=== PATIENT | female | born 1950 | race Caucasian/White ===

== ENCOUNTER → 2016-11-19 | Outpatient (CLI) | payer MEDICARE, OTHER ==
[2016-06-11 12:11] VITALS: BP 142/87
[~2016-11-19] MED LIST: ACET500T68 PO; ASPI-482 PO; ATOR20TA PO; CYAN500L4 PO; DICL100G7 TP; DIVA500T2 PO; DOCU-27 PO; DOCU100C5 PO; FERR160T4 PO; GLYB3TAB PO; INSU100C4 SQ; INSU100I13 SQ; INSU100I17 SQ; IOHEXOL 180 MG/ML 10 ML VIAL. ONE; LEVO25TA2 PO; LIDO700A4 TP; LOSA25TA PO; MAGN400T3 PO; META800T21 PO; METF500T4 PO; METH750T2 PO; MULT-658 PO; PARO40TA45 PO; PREG50CA PO; PREG75CA PO; RABE20TA5 PO; SITA100T PO; TOLT4CAP PO; TRAM-29 PO; TRAZ50TA15 PO; methylPREDNISolone ACETATE 40 MG/ML VIAL. ONE; methylPREDNISolone ACETATE 80 MG/ML VIAL. ONE
--- NOTE | 2016-11-20 15:00 | PAIN ---
DATE OF SERVICE: 11/19/2016 PROGRESS NOTE DIAGNOSES: 1. Lumbar radiculopathy with post-lumbar laminectomy syndrome. 2. Cervical radiculopathy with cervical degenerative disk disease and spondylosis. 3. Myofascial pain. 4. Bilateral acromioclavicular shoulder joint pain. HISTORY OF PRESENT ILLNESS: The patient is a 66-year-old female, who returns for followup, last seen 08/10/2016, the patient underwent right wrist joint injection with good results. The patient reports she has having some significant pain in her low back at this time bilateral lower extremities, more on the right than the left. The pain in her wrist is much improved. The patient reports still some pain in the shoulders as well as the right knee and right ankle, but her main pain is in the low back is 6 on a scale of 10 with resting is painful, aching, radiating to the right and left lower extremities, mostly in the right side, lateral anterior thigh, medial thigh and to the medial lower leg with walking and standing. The patient reports it has been bothering her from sleep occasionally, but not every night. It does not cause any new bowel or bladder incontinence, no new motor or sensory deficits or other complaints. PHYSICAL EXAMINATION: VITAL SIGNS: The patient's blood pressure is 152/87, pulse 105, respirations 18, temperature 98.6 degrees Fahrenheit, weight is 140 pounds. GENERAL: The patient is awake, alert, oriented, appropriate, very pleasant demeanor. HEENT: Head shows normocephalic, atraumatic. Extraocular movements are intact and symmetrical. Oral cavity shows mucous membranes moist and pink. Dentition is intact. NECK: Shows anterior throat supple without palpable lymphadenopathy noted. Swallow reflex is symmetrical. Neck shows some minor pain with extension, but not with forward flexion. Right and left lateral rotation and pain as well in the base of the neck with extension, but no radiation. CHEST: Shows normal on inspection. Breath sounds are clear to auscultation bilaterally. HEART: Shows S1 and S2 clear. No murmurs auscultated. ABDOMEN: Soft, nontender, nondistended. No palpable organomegaly. There is no rebound or guarding demonstrated. BACK: Shows spine grossly midline. Slight exaggeration of thoracic kyphosis and mild flattening of lumbar lordotic curvature, well-healed surgical scars noted in the midline lumbar distribution. Lumbar paraspinous musculature shows some moderate tenderness with palpation only in the lower lumbar distribution bilaterally, but only diffused muscle girth is normal with palpation and firm without radiation, without asymmetry, no tenderness over the spinous processes, sacrum or sacroiliac regions. The patient shows good rotation and motion of lumbar spine, both laterally as well as extension flexion without significant pain reported. Lower extremities show deep tendon reflexes at 1+ in the patellar and tendo calcaneus tendons. Motor exam is strong with dorsiflexion and extension rated approximately 4 on a scale of 5, but equal and symmetrical bilaterally. She does have some tenderness over the anterior aspect of the right ankle on the lateral aspect of the proximal metatarsals, but without any abnormalities palpated and has full range of motion. Options were discussed with the patient. The patient's old chart was reviewed, as her current medication regimen updated. Current review of systems updated today as well. We will proceed with a lumbar epidural steroid injection, first in the series with fluoroscopic guidance. Risks were again discussed including, but not limited to bleeding, infection, possibility of epidural hematoma, subsequent neurological compromise, dural puncture, headaches, spinal cord and/or nerve damage, side effects of steroid medications and poor results regarding pain control. The patient understands and wishes to proceed. The patient will return to clinic in approximately 2 weeks for followup, was counseled on return appointment, activity level, and side effects to be aware. Also, has ____ her right foot. This is most significant pain complaint secondary to back at this time. DIAGNOSIS: Lumbar radiculopathy with post-lumbar laminectomy syndrome. PROCEDURE: Lumbar epidural steroid injection, translaminar approach at the L4-L5 level using C-arm fluoroscopic guidance under sterile prep and drape using local anesthetic. Medications injected are 120 mg Depo-Medrol plus 10 mL of preservative-free normal saline and 2 mL of Isovue contrast. CONDITION AT DISCHARGE: Stable. The patient tolerated the procedure well, had no complications. FLORES FLOOD MD DR: GORDON/ariel JOB#: [id number] / [id number]
== END | disposition home or self-care (01) ==
LOC: PNCL 10:39
PROVIDERS: ATTEND Anesthesiology
DX: M54.16 Radiculopathy, lumbar region (principal); M50.10 Cervical disc disorder with radiculopathy, unspecified cervical region
CPT/HCPCS: 62323; J1030; J1040

== ENCOUNTER → 2017-01-21 | Outpatient (CLI) | payer MEDICARE, OTHER ==
[2016-06-11 12:11] VITALS: BP 142/87
[~2017-01-21] MED LIST changes: +BUPIVACAINE MPF 0.25% 10 ML VIAL. ONE; -methylPREDNISolone ACETATE 80 MG/ML VIAL. ONE
--- NOTE | 2017-01-22 05:57 | PAIN ---
DATE OF SERVICE: 01/21/2017 PROGRESS NOTE FOR PAIN CLINIC DIAGNOSES: 1. Bilateral acromioclavicular joint pain with primary osteoarthritis of the shoulder joints. 2. Cervical radiculopathy with cervical degenerative disk disease and spondylosis. 3. Lumbar radiculopathy with post-lumbar laminectomy syndrome. HISTORY OF PRESENT ILLNESS: The patient is a 66-year-old female who returns for followup status post lumbar epidural steroid injection x 1 on 11/19/2016. The patient reports she did very well with this, about 50% improvement. Her chief complaint today, however, is her right shoulder. It is aching and painful, more noticeable with activity using her right upper extremity, more in a repetitive fashion, even getting dressed, trying to abduct her shoulder away from the body. It is becoming more and more painful. The patient has had difficulty with these in the past in the left shoulder; however, it is doing very well. She reports in the right shoulder, it is most noticeable. She is right handed. She has been using her arm more and has been picking up her dog at home, which she estimates weigh about 20-30 pounds and this has been aggravating it as well on the right side. The patient reports no loss of motor function, but significant pain in the right shoulder. It is cramping, aching, and constant pain with activity. The patient reports pain anywhere from 3-6 on a scale 10. It is currently at 3 on exam today. PHYSICAL EXAMINATION: VITAL SIGNS: The patient's blood pressure is 157/93, pulse 80, respirations are 18, temperature 98.2 degrees Fahrenheit, height is 4 feet 11 inches, and weight is 144 pounds. GENERAL: The patient is awake, alert, oriented, appropriate, very pleasant demeanor. The patient is accompanied by her . HEENT: Head shows normocephalic, atraumatic. Extraocular movements are intact, symmetrical. Oral cavity shows mucous membranes moist and pink. Dentition is intact. NECK: Shows anterior throat supple without palpable lymphadenopathy noted. Swallow reflex is symmetrical. Neck shows full rotational motion of the cervical spine without difficulty or tenderness. CHEST: Shows normal on inspection. Breath sounds are clear to auscultation bilaterally. HEART: Shows S1 and S2 clear. ABDOMEN: Soft, nontender, nondistended. BACK: Shows spine grossly in the midline with slight flattening of lumbar lordotic curvature and slight exaggeration of thoracic kyphotic curvature, but no specific tenderness in the inferior aspect of the cervical paraspinous musculature, thoracic paraspinous, or lumbar distribution with very mild tenderness diffusely in the lower lumbar distribution with some minor tenderness over the left sacroiliac region and only very minimally with palpation and nontender on the right. Upper extremity showed deep tendon reflexes at 1+ in the biceps and triceps tendons. Right shoulder shows still significant pain with attempting to abduct past about 45 degrees on the right side with significant tenderness reported at the top of the shoulder. With palpation, it shows significant tenderness over the acromioclavicular joint, both anteriorly and posteriorly, very tender with the patient withdrawing the arm from the examining hand. The patient shows no tenderness on the left side with palpation. Passive range of motion is better with forward extension ____ abduction is very tender still even with passive range of motion. Options were discussed with the patient. The patient's old chart was reviewed as was her current medication regimen and updated. Current review of systems updated today as well and we will proceed with a right acromioclavicular joint injection with fluoroscopic guidance. Risks were again discussed including, but not limited to bleeding, infection, possibility of intravascular injection sequelae, spread of local anesthetic and numbness, side effects of steroid medication and exposure to fluoroscopy and poor results regarding pain control. The patient understands and wishes to proceed. The patient will return to clinic in approximately 2 weeks for followup. She was counseled on return appointment, activity level and side effects to be aware of. DIAGNOSIS: Right shoulder joint pain with primary osteoarthritis, right shoulder joint. PROCEDURE: Right acromioclavicular joint injection with fluoroscopic guidance under sterile prep and drape using local anesthetic. MEDICATIONS INJECTED: 40 mg of Depo-Medrol total and total of 2 mL of 0.25% bupivacaine after negative aspiration at the injection site. CONDITION AT DISCHARGE: Stable. The patient tolerated the procedure well and had no complications. FLORES FLOOD MD DR: GORDON/ariel JOB#: [id number] / [id number]
== END | disposition home or self-care (01) ==
LOC: PNCL 11:47
PROVIDERS: ATTEND Anesthesiology
DX: M19.011 Primary osteoarthritis, right shoulder (principal); M50.10 Cervical disc disorder with radiculopathy, unspecified cervical region; M96.1 Postlaminectomy syndrome, not elsewhere classified; M54.16 Radiculopathy, lumbar region
CPT/HCPCS: 20610; 77002; J1030; J3490; 20600

== ENCOUNTER → 2017-03-31 | Outpatient (CLI) | payer MEDICARE, OTHER ==
[2016-06-11 12:11] VITALS: BP 142/87
[~2017-03-31] MED LIST changes: +DICL100G18 TP; -DICL100G7 TP; +DOCU-109 PO; -DOCU-27 PO; +DOCU100C28 PO; -DOCU100C5 PO; -IOHEXOL 180 MG/ML 10 ML VIAL. ONE; -LEVO25TA2 PO; +LEVO25TA55 PO; +META-21 PO; -META800T21 PO; -PARO40TA45 PO; +PARO40TA61 PO; +RABE20TA18 PO; -RABE20TA5 PO; -TRAM-29 PO; +TRAM-48 PO
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
== END | disposition home or self-care (01) ==
LOC: PNCL 10:05
PROVIDERS: ATTEND Anesthesiology
DX: M19.011 Primary osteoarthritis, right shoulder (principal); M50.10 Cervical disc disorder with radiculopathy, unspecified cervical region; M54.16 Radiculopathy, lumbar region; M47.22 Other spondylosis with radiculopathy, cervical region; M96.1 Postlaminectomy syndrome, not elsewhere classified; Z91.041 Radiographic dye allergy status; Z91.040 Latex allergy status
CPT/HCPCS: 20605; 77002; J1030; J3490; 20600

== ENCOUNTER → 2017-04-22 | Outpatient (CLI) | payer MEDICARE, OTHER ==
[2016-06-11 12:11] VITALS: BP 142/87
== END | disposition home or self-care (01) ==
LOC: PNCL 11:17
PROVIDERS: ATTEND Anesthesiology
DX: M19.011 Primary osteoarthritis, right shoulder (principal); Z91.040 Latex allergy status; Z91.048 Other nonmedicinal substance allergy status; Z91.041 Radiographic dye allergy status
CPT/HCPCS: 20605; 77002; J1030; J3490

== ENCOUNTER → 2017-07-21 | Outpatient (CLI) | payer MEDICARE, OTHER ==
[2016-06-11 12:11] VITALS: BP 142/87
--- NOTE | 2017-07-21 16:24 | PAIN ---
DATE OF SERVICE: 07/21/2017 DIAGNOSES: 1. Cervical radiculopathy with cervical degenerative disk disease and cervical spondylosis. 2. Lumbar radiculopathy with post-lumbar laminectomy syndrome. 3. Myofascial pain. 4. Bilateral shoulder joint pain. 5. Right wrist joint pain. HISTORY OF PRESENT ILLNESS: The patient is a 67-year-old female who returns for followup status post bilateral acromioclavicular joint injections, 04/22/2017. The patient reports she did very well with the injections with only some pain beginning to return now on the left shoulder only. The patient is about 50% improved. The right side is almost completely pain free, left side, however, is fairly significantly tender with palpation and with rotational motion of the arm, especially raising her arm up over her head or reaching forward, she notices the pain in the top of the shoulder and the posterior aspect of the top shoulder on the left side only. Right side shows good range of motion without difficulty. The patient reports the pain in the left side is becoming more constant. It is cramping, tight, aching, rates as 7 on a scale of 10 at its worse, 5 on average, 3 at least and 3 today. The patient reports it does not awaken her from sleep; however, she has been doing well with sleeping. Only bothers her more with weightbearing on the left arm, reaching forward or pulling something forward and driving car, reaching with her left arm to steering wheel. PHYSICAL EXAMINATION: VITAL SIGNS: The patient's blood pressure 159/39, pulse 54, respirations are 16, temperature 96.4 degrees Fahrenheit, weight is 144 pounds. GENERAL: The patient is awake, alert, oriented, appropriate, very pleasant demeanor. HEENT: Shows normocephalic, atraumatic. Extraocular movements are intact, symmetrical. Oral cavity, mucous membranes are moist and pink. Dentition is intact. NECK: Shows anterior throat supple without palpable lymphadenopathy noted. Swallow reflex is symmetrical. CHEST: Shows normal on inspection. Breath sounds are clear to auscultation bilaterally. HEART: Shows S1 and S2 clear. ABDOMEN: Soft, nontender, nondistended. No palpable organomegaly noted. No rebound or guarding demonstrated. BACK: Shows spine grossly in midline with some slight exaggeration of thoracic kyphosis and some mild flattening of lumbar lordotic curvature. Well-healed surgical scars noted in the lumbar distribution. The patient's upper extremities show deep tendon reflexes 2+ in the biceps and triceps tendons. Motor exam is strong with pharmacy benefits coordinator strength rated at 5/5 on the left and 4/5 on the right. The patient has a splint on her right middle finger after recent trigger finger release surgery. The patient's shoulder shows some significant tenderness with palpation over the anterior and posterior acromioclavicular joint on the left only. Right side is only very minimally tender with deep palpation. The patient has good range of motion, however, with the left arm, but tender with raising past 90 degrees abduction as well as full forward extension with any weightbearing or resistance. Peripheral pulses are 2+ radial distribution bilaterally. Options were discussed with the patient and the patient's old chart was reviewed as her current medication regimen updated. Current review of systems updated today as well. We will proceed with a left acromioclavicular joint injection. Risks were discussed including but not limited to bleeding, infection, possibility of intravascular injection sequelae, spread of local anesthetic and numbness, side effects of steroid medication and poor results regarding pain control. The patient understands and wishes to proceed. The patient will return to clinic in approximately 4 weeks for followup, was counseled on return appointment, activity level and side effects to be aware of. DIAGNOSES: Left shoulder joint acromioclavicular pain with primary osteoarthritis, left shoulder joint. PROCEDURE: Left acromioclavicular joint injection using local anesthetic under sterile prep and drape, with medications injected a total of 40 mg of Depo-Medrol, plus 2 mL of 0.25% bupivacaine after negative aspiration. CONDITION AT DISCHARGE: Stable. The patient tolerated procedure well, had no complications. FLORES FLOOD MD DR: GORDON/ariel JOB#: [id number] / [id number]
== END | disposition home or self-care (01) ==
LOC: PNCL 13:35
PROVIDERS: ATTEND Anesthesiology
DX: M19.012 Primary osteoarthritis, left shoulder (principal); M50.10 Cervical disc disorder with radiculopathy, unspecified cervical region; M47.22 Other spondylosis with radiculopathy, cervical region; Z91.041 Radiographic dye allergy status; Z91.040 Latex allergy status; Z91.048 Other nonmedicinal substance allergy status
CPT/HCPCS: 20605; J1030; J3490

== ENCOUNTER → 2017-09-16 | Outpatient (CLI) | payer MEDICARE, OTHER ==
[2016-06-11 12:11] VITALS: BP 142/87
[~2017-09-16] MED LIST changes: +IOHEXOL 180 MG/ML 10 ML VIAL. ONE; -methylPREDNISolone ACETATE 40 MG/ML VIAL. ONE; +methylPREDNISolone ACETATE 80 MG/ML VIAL. ONE
--- NOTE | 2017-09-16 12:25 | PAIN ---
DATE OF SERVICE: 09/16/2017 PROGRESS NOTE DIAGNOSES: 1. Cervical radiculopathy with cervical degenerative disease, cervical spondylosis. 2. Lumbar radiculopathy with post-lumbar laminectomy syndrome. 3. Myofascial pain. 4. Bilateral shoulder joint pain. 5. Right wrist joint pain. HISTORY OF PRESENT ILLNESS: The patient is a 67-year-old female who returns for followup status post bilateral and most recently left acromioclavicular shoulder joint injection, last seen 07/21/2017. The patient did very well with this with near 100% improvement, but the pain has returned after she had a fall about a month ago on her left shoulder and arm. Still got pain in the base of the neck as well as bilateral shoulders, left much worse than right. Now reports it is aching, sharp, dull pain, constant, becoming more unbearable, more severe with activity with left upper extremity. The patient is left-handed. Any repetitive motions that reached above her shoulder with the left arm such as putting dishes into a cabinet or taking them out or any weightbearing, especially at her side with carrying items, it is painful in both shoulders, much worse on the left than the right. The patient reports pain is 10 on a scale 10 at its worst, 8 on average, 6 at its least and it is an 8 today. The patient reports no new motor or sensory deficits, but significant pain, much worse in the left shoulder is noted. She reports she has tripped over her dog or her dog's kennel on 2 occasions reexacerbating the left shoulder pain as well. PHYSICAL EXAMINATION: VITAL SIGNS: Today, the patient's blood pressure is 160/101, pulse 99, respirations 16, temperature 97.7 degrees Fahrenheit, weight is 144 pounds. GENERAL: The patient is awake, alert, oriented, appropriate, very pleasant demeanor. The patient accompanied by her . HEENT: Head shows normocephalic, atraumatic. Extraocular movements are intact, symmetrical. Oral cavity: Mucous membranes moist and pink. Dentition is intact. NECK: Shows anterior throat supple without palpable lymphadenopathy noted. Swallow reflex symmetrical. CHEST: Shows normal with inspection. Breath sounds clear to auscultation bilaterally. HEART: Shows S1, S2 clear. No murmurs auscultated. ABDOMEN: Soft, nontender, nondistended. No palpable organomegaly is noted. No rebound or guarding demonstrated. BACK: Shows spine grossly in the midline. Slight exaggeration of thoracic kyphosis, mild flattening of lumbar lordotic curvature. The patient's upper extremities show deep tendon reflexes at 2+ in the biceps and triceps tendons. Motor exam is 5/5 with back up machine operator strength on the right and 4/5 on the left. The patient's shoulder shows significant pain with palpation over the anterior aspect of the acromioclavicular joint on the left and also posterior aspect and the superior aspect of the distal clavicle with very tender and very severe pain. Right side is moderately to severe pain with palpation in the same regions. The patient shows difficulty with abduction of the shoulders, especially past 45 degrees on the left greater than the right, even with passive motion. Options were discussed with the patient. The patient's old chart was reviewed. Her current medication regimen updated. Current review of systems updated today as well. We will proceed with bilateral left and right acromioclavicular joint injections with fluoroscopic guidance. Risks were again discussed including, but not limited to bleeding, infection, possibility of intravascular injection sequelae, spread of local anesthetic and numbness, side effects of steroid medication, exposure to fluoroscopy and poor results regarding pain control. The patient understands and wished to proceed. The patient will return to clinic in approximately 2 weeks for followup. She was counseled on return appointment, activity level and side effects to be aware of. DIAGNOSIS: Primary osteoarthritis of the bilateral shoulder joints, acromioclavicular joints specifically. Procedure is bilateral acromioclavicular joint injection with C-arm fluoroscopic guidance under sterile prep and drape using local anesthetic. Medication injected is total of 80 mg Depo-Medrol, 40 mg per side and total of 4 mL 0.25% bupivacaine, 2 mL per side after negative aspiration, Isovue 2 mL total for contrast. CONDITION AT DISCHARGE: Stable. The patient tolerated procedure well, had no complications. FLORES FLOOD MD DR: GORDON/ariel JOB#: [id number] / [id number]
== END | disposition home or self-care (01) ==
LOC: PNCL 10:39
PROVIDERS: ATTEND Anesthesiology
DX: M19.012 Primary osteoarthritis, left shoulder (principal); M19.011 Primary osteoarthritis, right shoulder; M50.10 Cervical disc disorder with radiculopathy, unspecified cervical region; M47.22 Other spondylosis with radiculopathy, cervical region; Z91.041 Radiographic dye allergy status; Z91.040 Latex allergy status; Z91.048 Other nonmedicinal substance allergy status
CPT/HCPCS: 20605; J1040; J3490; 20600

== ENCOUNTER → 2017-12-08 | Outpatient (CLI) | payer MEDICARE, OTHER ==
[~2017-12-08] MED LIST changes: -ACET500T68 PO; -ASPI-482 PO; -ATOR20TA PO; -BUPIVACAINE MPF 0.25% 10 ML VIAL. ONE; -CYAN500L4 PO; -DICL100G18 TP; -DIVA500T2 PO; -DOCU-109 PO; -DOCU100C28 PO; -FERR160T4 PO; -GLYB3TAB PO; -INSU100C4 SQ; -INSU100I13 SQ; -INSU100I17 SQ; +IOHEXOL 180 MG/ML 10 ML VIAL.; -IOHEXOL 180 MG/ML 10 ML VIAL. ONE; -LEVO25TA55 PO; -LIDO700A4 TP; -LOSA25TA PO; -MAGN400T3 PO; -META-21 PO; -METF500T4 PO; -METH750T2 PO; -MULT-658 PO; -PARO40TA61 PO; -PREG50CA PO; -PREG75CA PO; -RABE20TA18 PO; -SITA100T PO; -TOLT4CAP PO; -TRAM-48 PO; -TRAZ50TA15 PO; +methylPREDNISolone ACETATE 40 MG/ML VIAL.; +methylPREDNISolone ACETATE 80 MG/ML VIAL.; -methylPREDNISolone ACETATE 80 MG/ML VIAL. ONE
== END ==
LOC: PNCL 11:01
DX: M50.10 Cervical disc disorder with radiculopathy, unspecified cervical region (principal); M96.1 Postlaminectomy syndrome, not elsewhere classified; M47.892 Other spondylosis, cervical region; M19.90 Unspecified osteoarthritis, unspecified site; Z80.41 Family history of malignant neoplasm of ovary; Z84.1 Family history of disorders of kidney and ureter
CPT/HCPCS: 62321; J1030; J1040; Q9965

== ENCOUNTER → 2017-12-22 | Outpatient (CLI) | payer MEDICARE, OTHER | LOC: PNCL 10:39 | DX: M47.22 Other spondylosis with radiculopathy, cervical region (principal); M50.10 Cervical disc disorder with radiculopathy, unspecified cervical region; M96.1 Postlaminectomy syndrome, not elsewhere classified; Y84.8 Other medical procedures as the cause of abnormal reaction of the patient, or of later complication, without mention of misadventure at the time of the procedure; Y92.89 Other specified places as the place of occurrence of the external cause; M54.16 Radiculopathy, lumbar region | CPT/HCPCS: G0463 ==

== ENCOUNTER → 2018-03-31 | Outpatient (CLI) | payer MEDICARE, OTHER ==
[~2018-03-31] MED LIST changes: +LIDOCAINE 1% PF 2 ML VIAL.
== END ==
LOC: PNCL 11:38
DX: M50.10 Cervical disc disorder with radiculopathy, unspecified cervical region (principal); M54.16 Radiculopathy, lumbar region; M96.1 Postlaminectomy syndrome, not elsewhere classified; M79.1 Myalgia; M25.512 Pain in left shoulder; M25.511 Pain in right shoulder
CPT/HCPCS: 62321; J1030; J1040; Q9965

== ENCOUNTER → 2018-04-21 | Outpatient (CLI) | payer MEDICARE, OTHER ==
[~2018-04-21] MED LIST changes: +BUPIVACAINE MPF 0.25% 10 ML VIAL.; -methylPREDNISolone ACETATE 40 MG/ML VIAL.
== END | disposition home or self-care (01) ==
LOC: PNCL 12:48
DX: M19.011 Primary osteoarthritis, right shoulder (principal); M19.012 Primary osteoarthritis, left shoulder; M79.1 Myalgia; M96.1 Postlaminectomy syndrome, not elsewhere classified; M50.10 Cervical disc disorder with radiculopathy, unspecified cervical region; Z91.041 Radiographic dye allergy status; Z91.040 Latex allergy status; Z91.048 Other nonmedicinal substance allergy status
CPT/HCPCS: 20605; 77002; J1040; J3490; Q9965

== ENCOUNTER → 2018-07-28 | Outpatient (CLI) | payer MEDICARE, OTHER ==
[2016-06-11 12:11] VITALS: BP 142/87
[~2018-07-28] MED LIST changes: +ACET500T68 PO; +ASPI-482 PO; +ATOR20TA PO; -BUPIVACAINE MPF 0.25% 10 ML VIAL.; +CYAN500L4 PO; +DICL100G18 TP; +DIVA500T2 PO; +DOCU-109 PO; +DOCU100C28 PO; +FERR160T4 PO; +GLYB3TAB PO; +INSU100C4 SQ; +INSU100I13 SQ; +INSU100I17 SQ; -IOHEXOL 180 MG/ML 10 ML VIAL.; +LEVO25TA55 PO; +LIDO700A4 TP; -LIDOCAINE 1% PF 2 ML VIAL.; +LOSA25TA PO; +MAGN400T3 PO; +META-21 PO; +METF500T16 PO; +METH750T2 PO; +MULT-658 PO; +PARO40TA61 PO; +PREG50CA PO; +PREG75CA PO; +RABE20TA18 PO; +SITA100T PO; +TOLT4CAP PO; +TRAM-48 PO; +TRAZ-85 PO; -methylPREDNISolone ACETATE 80 MG/ML VIAL.
[2018-07-28] MEDS: GADOBUTROL 7.5 MMOL/7.5 ML VIAL IV ONE (13:57)
--- NOTE | 2018-07-28 14:49 | RAD ---
MRI Cervical Spine with and without contrast History: Neck pain and stiffness, bilateral arm radiculopathy, previous fusion Technique: Multiplanar, multi sequential pre and postcontrast MR imaging was performed of the cervical spine. Contrast: 6 cc Gadavist Comparison: April 16, 2016 Findings: There has been anterior cervical fusion at C5-C6 in the interval. Exam does not accurately evaluate integrity of hardware. There is increased T2 and STIR signal of the visualized jb in interval. Cervical cord caliber is within normal limits without convincing focal signal abnormality or enhancement. Cervical vertebral body stature is maintained. There is straightening of the cervical spine, very mild reversal of the lordotic curvature centered upon C3-4. There is mild grade 1 anterior spondylolisthesis at C2-3 and C3-4. There is again [id number] degenerative disc disease greater anteriorly at C6-7 and mild degenerative disc disease C4-5 greater in the interval. There is no significant marrow edema. C2-C3: There is fairly severe left facet degenerative change, to lesser degree on the right. Spinal canal and right neural foramen are adequate, mild to moderate posterior narrowing of the left neural foramen. C3-C4: There is severe left facet degenerative change, to lesser degree on the right. There is mild buckling of the ligamentum flavum. Central canal is minimally narrowed to 9 to 10 mm. Right neural foramen is adequate. There is mild left uncovertebral degenerative change. There is severe narrowing of the left neural foramen. C4-C5: There is new extrusion eccentric to the left lateral recess mostly contained about the intervertebral disc space level although slight extent below. Extrusion measures about about 10 mm transverse by 10 mm CC by 4 mm AP. There is indentation upon the ventral thecal sac greater in the left lateral recess. There is impingement upon the left ventral cord. Central canal is narrowed to about 6 mm with a greater degree of left lateral recess stenosis. There is bilateral facet degenerative change. Right neural foramen is adequate, likely at least mild narrowing of the left neural foramen. C5-C6: There are minimal posterior osteophytes in the lateral recesses. Central canal is adequate about 11 mm. There is uncovertebral degenerative change. There is moderate narrowing of the left neural foramen by osteophytes, right neural foramen not significantly narrowed. C6-C7: Spinal canal and the neural foramina are adequate. There is mild uncovertebral degenerative change. C7-T1: Spinal canal and neural foramina are adequate. There is minimal uncovertebral degenerative change. Impression: 1. Comparing with the 2016 exam, there is new extrusion at C4-5 more eccentric to left lateral recess with impingement of the left ventral cord, central canal stenosis about 6 mm at this level with a greater degree of left lateral recess stenosis. There has been anterior cervical fusion at C5-C6 in the interval. There is mild spinal stenosis at C3-4. There is severe narrowing of the left C3-4 neural foramen, lesser degree of narrowing on the left at C5-C6, C2-3, C4-5. 2. There is [id number] degenerative disc disease C6-7 and to lesser degree at C4-5, progressed at C4-5 in the interval. 3. Compared with the previous exam, there is increased T2 and STIR signal of the visualized jb, nonspecific findings most commonly due to to chronic microvascular ischemic disease in a patient this age. Electronically signed by: Rusty Philip MD (07/28/2018 2:46 PM) [id number]
== END | disposition home or self-care (01) ==
LOC: MRI 13:59
PROVIDERS: ATTEND Neurological Surgery
DX: M50.321 Other cervical disc degeneration at C4-C5 level (principal); M48.02 Spinal stenosis, cervical region; M50.221 Other cervical disc displacement at C4-C5 level; M43.12 Spondylolisthesis, cervical region
CPT/HCPCS: 72156; A9585

== ENCOUNTER → 2018-08-30 | Outpatient (CLI) | payer MEDICARE, OTHER ==
[2016-06-11 12:11] VITALS: BP 142/87
[~2018-08-30] MED LIST changes: +CRESTOR5 MG PO; +MELO15TA6 PO; +VITAMIN D 3
--- NOTE | 2018-08-30 13:48 | EKG ---
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
[2018-08-30 20:13] LABS: HEMOGLOBIN A1C 9.2 % (4.8-5.6)
== END | disposition home or self-care (01) ==
LOC: SURGPAT 12:38
PROVIDERS: ATTEND Neurological Surgery
DX: Z01.818 Encounter for other preprocedural examination (principal); M50.121 Cervical disc disorder at C4-C5 level with radiculopathy; M48.02 Spinal stenosis, cervical region; R94.31 Abnormal electrocardiogram [ECG] [EKG]
CPT/HCPCS: 36415; 83036; 87641; 93005

== ENCOUNTER → 2018-10-28 | Outpatient (CLI) | payer MEDICARE, OTHER ==
[2018-09-22 15:03] VITALS: BP 144/85
[~2018-10-28] MED LIST changes: +HYDR-2761 PO; +IOHEXOL 180 MG/ML 10 ML VIAL. ONE; +methylPREDNISolone ACETATE 40 MG/ML VIAL. ONE; +methylPREDNISolone ACETATE 80 MG/ML VIAL. ONE
--- NOTE | 2018-10-28 10:50 | PAIN ---
DATE OF SERVICE: 10/28/2018 DIAGNOSES: 1. Cervical radiculopathy with cervical degenerative disk disease and post-cervical laminectomy syndrome. 2. Lumbar radiculopathy with lumbar post-laminectomy syndrome. 3. Bilateral shoulder joint pain. HISTORY OF PRESENT ILLNESS: The patient is a 68-year-old female who returns for followup status post cervical epidural steroid injections and recent anterior cervical diskectomy with fusion. The patient reports that she is doing quite well after her cervical surgery, but her chief complaint is low back and right lower extremity pain. The patient reports significant pain in low back radiating to posterior gluteus, lateral thigh, lateral anterior thigh, medial thigh and medial lower leg on the right side greater than the left and across the low back, is aching, dull, stabbing, sometimes shooting, radiating pain into the right lower extremity. The patient reports it is 7 on a scale of 10 at its worst, 6 on average, 6 at its least and is a 6 today. The patient reports no new motor or sensory deficits, but worse with walking, standing, changing positions, better with lying down or sitting, does not awaken her from sleep generally, but on some nights it does. The patient reports no new motor or sensory deficits, no new bowel or bladder incontinence or other complaints. PHYSICAL EXAMINATION: VITAL SIGNS: The patient's blood pressure is 114/105, pulse 116, respirations are 18, temperature 97.4 degrees Fahrenheit, height is 4 feet 11 inches, weighs 141 pounds. GENERAL: The patient is awake, alert, oriented, appropriate, very pleasant demeanor. HEENT: Head shows normocephalic, atraumatic. Extraocular movements intact and symmetrical. Oral cavity: Mucous membranes moist and pink. Dentition is intact. NECK: Shows anterior throat supple without palpable lymphadenopathy noted. Swallow reflex symmetrical. CHEST: Shows normal with inspection. Breath sounds clear to auscultation bilaterally. HEART: Shows S1, S2 clear. No murmurs auscultated. ABDOMEN: Soft, nontender, nondistended. No palpable organomegaly is noted. No rebound or guarding demonstrated. BACK: Shows spine grossly in the midline. Slight increase in thoracic kyphosis, normal appearing lumbar lordotic curvature with well-healed surgical scar noted. EXTREMITIES: The patient's lower extremities show deep tendon reflexes at 1+ in the patellar and tendo calcaneus tendons are equal. Motor exam is strong with dorsiflexion, extension, quadriceps and hamstring flexion, rated 4/5 equal and symmetrical bilaterally. Peripheral pulses are 1+ posterior tibial. No peripheral edema is noted bilaterally. Options were discussed with the patient. The patient's old chart was reviewed, as her current medication regimen updated. Current review of systems updated today as well. We will proceed with a lumbar epidural steroid injection today with the first in this series with fluoroscopic guidance. Risks were again discussed including, but not limited to bleeding, infection, possibility of epidural hematoma and subsequent neurological compromise, dural puncture, headaches, spinal cord and/or nerve damage, side effects of steroid medication and poor results regarding pain control. The patient understands and wished to proceed. The patient will return to clinic in approximately 2 weeks for followup, was counseled as to return appointment, activity level and side effects to be aware of. DIAGNOSES: Lumbar radiculopathy with post-lumbar laminectomy syndrome. PROCEDURE: Lumbar epidural steroid injection, translaminar approach at L4-L5 level using C-arm fluoroscopic guidance under sterile prep and drape using local anesthetic. MEDICATION INJECTED: A total of 120 mg Depo-Medrol, plus 10 mL of preservative-free normal saline and 2 mL of Isovue for contrast. CONDITION AT DISCHARGE: Stable. The patient tolerated the procedure well, had no complications. FLORES FLOOD MD DR: GORDON/ariel JOB#: [id number] / [id number]
== END | disposition home or self-care (01) ==
LOC: PNCL 08:41
PROVIDERS: ATTEND Anesthesiology
DX: M96.1 Postlaminectomy syndrome, not elsewhere classified (principal); M50.10 Cervical disc disorder with radiculopathy, unspecified cervical region; M25.512 Pain in left shoulder; M25.511 Pain in right shoulder; Z91.041 Radiographic dye allergy status; Z91.040 Latex allergy status; Z91.048 Other nonmedicinal substance allergy status
CPT/HCPCS: 62323; J1030; J1040; Q9965

== ENCOUNTER → 2019-04-05 | Outpatient (CLI) | payer MEDICARE, OTHER ==
[2018-09-22 15:03] VITALS: BP 144/85
[~2019-04-05] MED LIST changes: +BUPIVACAINE MPF 0.25% 10 ML VIAL. ONE; +TRAZ-118 PO; -TRAZ-85 PO; -methylPREDNISolone ACETATE 40 MG/ML VIAL. ONE
--- NOTE | 2019-04-05 22:29 | PAIN ---
DATE OF SERVICE: 04/05/2019 PROGRESS NOTE FOR PAIN CLINIC DIAGNOSES: 1. Cervical radiculopathy with cervical degenerative disk disease and post-cervical laminectomy syndrome. 2. Lumbar radiculopathy with post-lumbar laminectomy syndrome. 3. Myofascial pain. 4. Bilateral shoulder joint pain. 5. Right wrist joint pain. HISTORY OF PRESENT ILLNESS: The patient is a 68-year-old female who returns for followup status post lumbar epidural steroid injection x 1, 10/28/2018. The patient did very well with this with about a 75% improvement. Her chief complaint today is her left shoulder joint aching and painful. She has had this in the past as well as some pain in the neck and upper shoulder. The patient did have cervical surgery in September of last year by her report, is doing quite well with that, but some minor pain in the base of the neck. The patient reports the pain in her left shoulder now is worse with using her left arm for activity, raising objects, weightbearing with left arm, reaching forward, reaching upward, hence having difficulty with it, disturbing her from sleep occasionally but not every night if she lays on her left side. The patient reports her pain was 9 on a scale of 10 at its worst in the past week, 7 on average, 6 at its least and is 6 today. The patient reports it burning, cramping and tight feeling in the left shoulder, severe at times and sometimes constant with activity, especially with any weightbearing or lifting items, repetitive movements of the left arm. The patient reports no new motor or sensory deficits, no new changes. PHYSICAL EXAMINATION: VITAL SIGNS: The patient's blood pressure is 151/83, pulse 119, respirations 18, temperature 98.2 degrees Fahrenheit, height is 4 feet 11 inches, weighs 136 pounds. GENERAL: The patient is awake, alert, oriented, appropriate, very pleasant demeanor. HEENT: Shows normocephalic, atraumatic. Extraocular movements intact and symmetrical. Oral cavity: Mucous membranes moist and pink. Dentition is intact. NECK: Shows anterior throat supple without palpable lymphadenopathy noted. Swallow reflex symmetrical. CHEST: Shows normal with inspection. Breath sounds clear to auscultation bilaterally. HEART: Shows S1, S2 clear. No murmurs auscultated. ABDOMEN: Soft, nontender, nondistended. No palpable organomegaly is noted. No rebound or guarding demonstrated. BACK: Shows spine grossly in the midline. Slightly exaggerated thoracic kyphosis and normal lumbar lordotic curvature. Lumbar paraspinous muscle shows symmetrical on inspection, on palpation shows some moderate tenderness diffusely without any radiation. Cervical paraspinous muscle shows symmetrical. Good rotational motion of cervical spine, both laterally as well as extension and flexion without significant increase in pain. EXTREMITIES: The patient's upper extremities show deep tendon reflexes 2+ in biceps and triceps tendons. 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 The patient's left acromioclavicular area shows very significant tenderness with palpation over the anterior superior joint as well as the posterior aspect of the AC joint on the left side. It is worse with abduction of the shoulders and resistance and also bicep and tricep flexion causes increased the pain as well. Right side is nontender. Peripheral pulses are 2+ radial distribution. No peripheral edema is noted. Options were discussed. The patient's old chart was reviewed as was her current medication regimen updated. Current review of systems updated today as well. We will proceed with a left acromioclavicular joint injection today with fluoroscopic guidance. Risks were again discussed including, but not limited to bleeding, infection, possibility of intravascular injection sequelae, spread of local anesthetic and numbness, side effects of steroid medication, exposure to fluoroscopy and poor results regarding pain control. The patient understands and wished to proceed. The patient will return to clinic in approximately 2 weeks for followup, was counseled as to return appointment, activity level and side effects to be aware of. DIAGNOSIS: Left shoulder joint pain with osteoarthritis of left shoulder joint. PROCEDURE: Left acromioclavicular joint injection using C-arm fluoroscopic guidance under sterile prep and drape using local anesthetic. MEDICATION INJECTED: A total of 40 mg Depo-Medrol plus total of 2 mL of 0.25% bupivacaine and 0.5 mL of contrast. CONDITION AT DISCHARGE: Stable. The patient tolerated the procedure well, had no complications. FLORES FLOOD MD DR: GORDON/ariel JOB#: [id number] / [id number]
== END ==
LOC: PNCL 11:15
PROVIDERS: ATTEND Anesthesiology
DX: M13.812 Other specified arthritis, left shoulder (principal); M25.512 Pain in left shoulder
CPT/HCPCS: 20605; 77002; J1040; J3490; Q9965

== ENCOUNTER → 2019-06-08 | Outpatient (CLI) | payer MEDICARE, OTHER ==
[2018-09-22 15:03] VITALS: BP 144/85
[~2019-06-08] MED LIST changes: -BUPIVACAINE MPF 0.25% 10 ML VIAL. ONE; +methylPREDNISolone ACETATE 40 MG/ML VIAL. ONE
--- NOTE | 2019-06-09 14:52 | PAIN ---
DATE OF SERVICE: 06/08/2019 PROGRESS NOTE FOR PAIN CLINIC DIAGNOSIS: Lumbar radiculopathy with lumbar post laminectomy syndrome. HISTORY OF PRESENT ILLNESS: The patient is a 69-year-old female, who returns for followup status post previous acromioclavicular joint injection on the left with about 70% improvement. The patient reports her chief complaint today is her low back and right hip pain. The patient reports she did very well after an epidural injection in October of this year with about 70% improvement, but the pain is returning now. She did fall with an injury with her right hip but has an x-ray without any dislocation or fractures. There is still some significant pain radiating to posterior gluteus, posterolateral thigh, lateral anterior thigh, medial thigh, medial lower leg with walking, standing, changing positions, better with sitting or lying down, but it is awakening her from sleep sometimes every 4-6 hours but not every night. The patient reports no new motor or sensory deficits. The patient reports her pain is 7 on a scale of 10 on average, 9 at its worst, 4 at its least, and is a 4 today. The patient reports no new motor or sensory deficits, no new bowel or bladder incontinence. She describes the pain as aching and dull, shooting and sharp, radiating and constant in the low back at times. PHYSICAL EXAMINATION: VITAL SIGNS: The patient's blood pressure 147/72, pulse 90, respirations 18, temperature 98.2 degree Fahrenheit, height 4 feet 11 inches, and weighs 135 pounds. GENERAL: The patient is awake, alert, oriented, appropriate, and very pleasant demeanor. HEENT: Head shows normocephalic, atraumatic. Extraocular movements are intact and symmetrical. Oral cavity: Mucous membranes are moist and pink. Dentition is intact. NECK: Shows anterior throat supple without palpable lymphadenopathy noted. Swallow reflex is symmetrical. CHEST: Shows normal on inspection. Breath sounds are clear to auscultation bilaterally. HEART: Shows S1, S2 clear. No murmurs are auscultated. ABDOMEN: Soft, nontender, and nondistended. No palpable organomegaly is noted. No rebound or guarding demonstrated. BACK: Shows spine grossly in the midline; normal appearing thoracic kyphosis; slight exaggeration of thoracic kyphosis actually and some minor flattening of lumbar lordotic curvature; well-healed surgical scar noted. Lumbar paraspinous muscle shows symmetrical on inspection. On palpation, there is some moderate tenderness diffusely bilaterally but only diffusely without radiation. The patient has good rotational motion of lumbar spine with both lateral extension and flexion without significant difficulty. EXTREMITIES: Lower extremities show deep tendon reflexes 1+ in the patellar and tendo-calcaneus tendons. Motor exam is approximately 4 on a scale of 5, but equal and symmetrical bilaterally with dorsiflexion, extension; quadriceps and hamstring flexion in both lower extremities. Peripheral pulses are 1+ posterior tibia. No peripheral edema is noted. IMPRESSION AND PLAN: Options were discussed with the patient. The patient's old chart was reviewed as her current medication regimen updated and current review of systems updated today as well. We will proceed with a first in this series of lumbar epidural steroid injection today with fluoroscopic guidance. Risks were again discussed including but not limited to bleeding, infection, possibility of epidural hematoma, subsequent neurological compromise, dural puncture, headaches, spinal cord and/or nerve damage, side effects of steroid medication, and poor results regarding pain control. The patient understands and wished to proceed. The patient will return to clinic in approximately 2 weeks for followup. She was counseled as to return appointment, activity level, and side effects to be aware of. DIAGNOSIS: Lumbar radiculopathy with lumbar post laminectomy syndrome. PROCEDURE: Lumbar epidural steroid injection, translaminar approach, L4-L5 level, using C-arm fluoroscopic guidance under sterile prep and drape using local anesthetic. MEDICATION INJECTED: The patient received a total of 120 mg Depo-Medrol plus 10 mL of preservative-free normal saline and 2 mL of contrast. CONDITION AT DISCHARGE: Stable. The patient tolerated the procedure well, had no complications. FLORES FLOOD MD DR: GORDON/ariel JOB#: [id number] / [id number]
== END ==
LOC: PNCL 11:14
PROVIDERS: ATTEND Anesthesiology
DX: M54.16 Radiculopathy, lumbar region (principal); M96.1 Postlaminectomy syndrome, not elsewhere classified
CPT/HCPCS: 62323; J1030; J1040; Q9965

== ENCOUNTER → 2019-06-20 | Outpatient (CLI) | payer MEDICARE, OTHER ==
[2018-09-22 15:03] VITALS: BP 144/85
[~2019-06-20] MED LIST changes: +GADOTERATE 7.5 MMOL/15ML VIAL. IVP ONE; -IOHEXOL 180 MG/ML 10 ML VIAL. ONE; -methylPREDNISolone ACETATE 40 MG/ML VIAL. ONE; -methylPREDNISolone ACETATE 80 MG/ML VIAL. ONE
--- NOTE | 2019-06-20 15:14 | KCIC ---
LUMBAR SPINE WO/W CONTRAST History: Degenerative lumbar disease. Severe right leg pain. Technique: Multiplanar, multi sequential MR imaging was performed of the lumbar spine with and without contrast. Contrast: 12 mL Dotarem. Comparison: January 29, 2016 Findings: Straightening of the normal lumbar lordosis. Otherwise, normal alignment. Normal vertebral body height. No fracture. Degenerative endplate edema L3-L4, significantly progressed compared to prior. Additional degenerative endplate edema L2-L3, L4-L5 and L5-S1. Low-lying conus terminating at L4-L5. Filar lipoma. No pathologic enhancement. T10-T11: Partially imaged disc extrusion on the left. T11-T12. No canal or neuroforaminal narrowing. Small posterior disc bulge with possible small right disc extrusion. T12-L1: No canal or neuroforaminal narrowing. L1-L2: Small posterior disc bulge. Mild facet arthropathy. No canal or neuroforaminal narrowing. L2-L3: Broad-based posterior disc bulge with superimposed right subarticular disc extrusion extending inferiorly. Mild right subarticular recess narrowing. Moderate facet arthropathy. Minimal canal narrowing. Mild right neuroforaminal narrowing. No left neural foraminal narrowing. L3-L4: Broad-based posterior disc bulge with superimposed left subarticular disc extrusion extending inferiorly. Severe narrowing of the left subarticular recess with compression of the descending left L4 nerve root. Mild facet arthropathy. Moderate left and mild right neuroforaminal narrowing. L4-L5: Broad-based posterior disc bulge eccentric to the right. Moderate facet arthropathy. Mild right subarticular recess narrowing. No canal narrowing. Mild right neural foraminal narrowing. L5-S1: Broad-based posterior disc bulge with superimposed left subarticular disc protrusion. Severe bilateral subarticular recess narrowing with abutment of the bilateral descending S1 nerve roots, right greater than left. Advanced facet arthropathy. Mild canal narrowing. Moderate right and severe left neural foraminal narrowing. Probable postoperative changes left hemilaminotomy. When compared with the prior examination the degenerative findings are progressed. Impression: 1. Moderate to advanced multilevel lumbar spondylosis, progressed compared to 2016. 2. L3-L4 large left subarticular recess disc extrusion contributing to severe left subarticular recess narrowing and impingement of the descending left L4 nerve root. Correlate for radiculopathy. 3. L5-S1 severe subarticular recess narrowing with abutment of the descending S1 nerve roots, right greater than left. Correlate for radiculopathy. 4. Multilevel neural foraminal narrowing most prominent L5-S1. 5. Low-lying conus. 6. Partially imaged T10-T11 disc extrusion. If persistent clinical concern recommend dedicated imaging. Electronically signed by: Andrew Hagen DO (06/20/2019 3:11 PM) [facility]
== END | disposition home or self-care (01) ==
LOC: KCIC MRI 12:34
PROVIDERS: ATTEND Orthopaedic Surgery
DX: M47.816 Spondylosis without myelopathy or radiculopathy, lumbar region (principal); M48.07 Spinal stenosis, lumbosacral region; M51.25 Other intervertebral disc displacement, thoracolumbar region; M46.87 Other specified inflammatory spondylopathies, lumbosacral region; I10 Essential (primary) hypertension; E11.9 Type 2 diabetes mellitus without complications
CPT/HCPCS: 72158; 82565; A9575

== ENCOUNTER → 2019-07-04 | Outpatient (CLI) | payer MEDICARE, OTHER ==
[2018-09-22 15:03] VITALS: BP 144/85
[~2019-07-04] MED LIST changes: +AMLO2.5T2 PO; -GADOTERATE 7.5 MMOL/15ML VIAL. IVP ONE; +HYDR-2765 PO; -MAGN400T3 PO; +MAGN400T5 PO
[2019-07-04 13:58] LABS: BASO # 0.1 x10^3/uL (0.0-0.2); BASO % 1 % (0-3); EOS # 0.1 x10^3/uL (0.0-0.7); EOS % 1 % (0-3); HEMATOCRIT 33.5 % (36.0-47.0); HEMOGLOBIN 11.1 g/dL (12.0-15.5); LYMPH # 2.2 x10^3/uL (1.0-4.8); LYMPH % 28 % (24-48); MEAN CORPUSCULAR HEMOGLOBIN 31 pg (25-35); MEAN CORPUSCULAR HGB CONC 33 g/dL (31-37); MEAN CORPUSCULAR VOLUME 93 fL (79-100); MONO # 0.6 x10^3/uL (0.0-1.1); MONO % 8 % (0-9); NEUT # 4.8 x10^3/uL (1.8-7.7); NEUT % 62 % (31-73); PLATELET COUNT 296 x10^3/uL (140-400); RED BLOOD COUNT 3.59 x10^6/uL (3.50-5.40); RED CELL DISTRIBUTION WIDTH 13.5 % (11.5-14.5); WHITE BLOOD COUNT 7.8 x10^3/uL (4.0-11.0)
[2019-07-04 14:36] LABS: ALBUMIN 3.5 g/dL (3.4-5.0); ALBUMIN/GLOBULIN RATIO 1.1 (1.0-1.7); CREATININE 1.1 mg/dL (0.6-1.0); POTASSIUM 4.5 mmol/L (3.5-5.1); TOTAL BILIRUBIN 0.2 mg/dL (0.2-1.0); TOTAL PROTEIN 6.6 g/dL (6.4-8.2)
--- NOTE | 2019-07-04 14:39 | EKG ---
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
[2019-07-05 03:13] LABS: HEMOGLOBIN A1C 9.2 % (4.8-5.6)
== END | disposition home or self-care (01) ==
LOC: SURGPAT 14:13
PROVIDERS: ATTEND Neurological Surgery
DX: Z01.818 Encounter for other preprocedural examination (principal); M51.17 Intervertebral disc disorders with radiculopathy, lumbosacral region; R00.0 Tachycardia, unspecified; R94.31 Abnormal electrocardiogram [ECG] [EKG]
CPT/HCPCS: 36415; 80053; 82306; 83036; 85025; 87641; 93005

== ENCOUNTER 2019-07-10 08:23 | Day surgery (SDC) | payer MEDICARE, OTHER ==
--- NOTE | 2019-07-07 15:15 | HP ---
ADMIT DATE: 07/10/2019. DATE OF SURGERY: 07/10/2019. HISTORY OF PRESENT ILLNESS: The patient is a pleasant 69-year-old who is having severe low back pain and right buttock pain. The problem started acutely about 3 weeks ago after she bent over to cotton picker some laundry. She rates her pain as 10/10. Sitting or car rides markedly increase her pain. Hot shower seems to help some. She has had epidural steroid injections, which she said helped slightly. She had a hip injection a few days ago, which was of no benefit. She walks with a cane. She has been spending most of her time lying in bed. She is not improving significantly. The pain is severe. It can tend to radiate into the right hip and then down into the lateral right thigh and leg. 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 PAST SURGICAL HISTORY: Left hip 2003, lumbar surgery 2001, shoulder 2007, second shoulder surgery 2010, heart catheterization 2002, ACDF C5-C6 in 05/2016, and ACDF C4-C5 in 09/2018. FAMILY HISTORY: Cancer, diabetes, hypertension. SOCIAL HISTORY: . Denies substance abuse. Quit smoking greater than 10 years ago. Does not drink alcohol. Drinks coffee and soda. ALLERGIES: No known drug allergies. CURRENT MEDICATIONS: Tylenol, tramadol, Cozaar, Lipitor, Paxil, Depakote, Synthroid, Aciphex, Detrol, Januvia, aspirin 81, Lyrica, remifemin, Lantus, NovoLog, metformin, Mag-Ox, Dina ginseng, vitamins, Tylenol, Mobic, Aspercreme. REVIEW OF SYSTEMS: A 12-point review of systems was obtained and is noncontributory except for that mentioned above. PHYSICAL EXAMINATION: NEUROSURGERY EXAMINATION: GENERAL APPEARANCE: Alert, pleasant, in moderate distress because of this pain. MUSCULOSKELETAL: She has difficulty getting up on the exam table. There is tenderness in the lower lumbar spine diffusely with palpation, lumbar spine paraspinal muscle bulk is normal, restricted range of motion of lumbar spine, neurosurgery examination. HEAD: Normocephalic and atraumatic. SKIN: Warm and dry. EXTREMITIES: No clubbing, cyanosis or edema. NEUROLOGIC: Alert and oriented x 3, strength 5/5 in bilateral lower extremities. There is a decreased sensation in the right lateral distal leg and dorsum of the right foot. Straight leg raising is negative bilaterally. The remainder of her exam is unremarkable except for trace reflexes throughout, ambulates with a cane. IMAGING: I reviewed a lumbar MRI scan. There are multiple issues of the lumbar spine. On the right side at L2-L3, there is right-sided broad-based posterior disk bulge and right inferior disc extrusion which is narrowing in the right lateral recess. At L3-L4, there is broad-based posterior disc bulge with left-sided inferior disk extrusion which is large and appears to compress the L4 root. At L4-L5, there is disk bulge without significant compression. At L5-S1, there is broad-based posterior disk bulge with left and right components. There is severe bilateral subarticular recess narrowing contacting the bilateral descending S1 roots. The right side appears more involved than the left. There is also severe left and right foraminal narrowing. ASSESSMENT/ PLAN: The patient is difficult. I have seen people with L2 problem, which can have an L5 pattern in the lower extremity. She also has compression L5-S1 on the right. My feeling is that we should address both of these areas and that her pain is so significant that problem has been addressed. I spoke with her about the surgery and the risks. I spoke with her about the technique and expected postoperative course and she would like to go ahead. BARI JANSEN MD DR: CHRIS/ariel JOB#: [id number] / [id number] JOSHUA
[~2019-07-10] VITALS: Ht 149.9 cm; Wt 58.9 kg
[~2019-07-10 08:23] MED LIST changes: +BACITRACIN 50,000 UNIT in IV NORMAL SALINE 1000ML BAG 1,000 ML IRR ONE; +BUPIVACAINE-EPI 0.5%-1:200000 MPF 30 ML VIAL. INJ ONE; +GELATIN SPONGE SIZE 12-7MM SPONGE. ONE; -HYDR-2765 PO; +HYDROmorphone 2 MG/ML VIAL IV PRN; +IV RINGERS,LACTATED 1000ML 1,000 ML IV SCH; +KETOROLAC 60 MG/2 ML VIAL. ONE; +LIDOCAINE 1% PF 2 ML VIAL. ID PRN; +MAGN400T3 PO; -MAGN400T5 PO; +MORPHINE SULFATE 2 MG/ML VIAL. IV PRN; +ONDANSETRON PF 4 MG/2 ML VIAL. IV PRN; +PROCHLORPERAZINE 10 MG/2 ML VIAL. IV PRN; +THROMBIN TOPICAL 20,000 UNIT SPRAY.SYRN KIT TP ONE; +fentaNYL PF VIAL 100 MCG/2 ML VIAL IV PRN
[2019-07-10] MEDS: INSULIN LISPRO 100 UNIT/ML 3ML VIAL for OP,RR ONLY. SQ PRN ×2 (09:18→14:57)
[2019-07-10] MEDS ORDERED: ONDANSETRON PF 4 MG/2 ML VIAL. ONE (09:51)
[2019-07-10] MEDS ORDERED: REMIFENTANIL 2 MG VIAL. IV ONE (09:51)
[2019-07-10] MEDS ORDERED: PHENYLEPHRINE 10 MG/ML VIAL. ONE (09:51)
[2019-07-10] MEDS ORDERED: LIDOCAINE 2% PF 5 ML VIAL. ONE (09:51)
[2019-07-10] MEDS ORDERED: DEXAMETHASONE SOD PHOS 20 MG/5 ML VIAL. ONE (09:51)
[2019-07-10] MEDS ORDERED: PROPOFOL 20 ML IV ONE (09:51)
[2019-07-10] MEDS ORDERED: PROPOFOL 50 ML IV ONE (09:51)
[2019-07-10] MEDS ORDERED: ROCURONIUM 50 MG/5 ML VIAL. ONE (09:52)
[2019-07-10] MEDS ORDERED: MINERAL OIL/PETROLATUM,WHITE OPHTH OINT 3.5GM TUBE. ONE (09:52)
[2019-07-10] MEDS ORDERED: 0.9 % SODIUM CHLORIDE 20 ML VIAL. IJ ONE ×2 (09:52)
[2019-07-10] MEDS ORDERED: ceFAZolin 2GM PREMIX 2 GM/50 ML BAG IV ONE (10:00)
[2019-07-10] MEDS ORDERED: GLYCOPYRROLATE 1 MG/5 ML VIAL. ONE (10:12)
[2019-07-10] MEDS ORDERED: DESFLURANE > 120 MINUTES IH ONE (13:37)
[2019-07-10] MEDS ORDERED: NEOSTIGMINE METHYLSULFATE 5 MG/5 ML SYRINGE. ONE (13:37)
[2019-07-10] MEDS ORDERED: DOCU-109 PO (13:51)
--- NOTE | 2019-07-10 13:52 | DISCH ---
DISCHARGE INSTRUCTIONS Condition on Discharge Condition on Discharge: Stable Activity After Discharge Activity Instructions for Disc: Activity as tolerated, Avoid exertion, Prog ressive ambulation Other activity instructions: no driving for a week Bathing Instructions: Shower-keep dressing dry Lifting Instructions after Dis: No heavy lifting, No pulling or pushing, Do not lift >10 pounds Exercise Instruction after Dis: Exercise per therapy Driving Instructions after Dis: Do not drive, Other, see below Weight Bearing Status after Di: Full weight bearing Diet after Discharge Diet after Discharge: Diabetic No Calorie Level Additional Diet Restrictions: resume home diet Diet Texture: Regular Liquid Texture: Thin Liquid Wound Incision Care Wound/Incision Care: Ice to area for comfort, No wound care needed, Other, see below Other wound/incision instructi: may remove dressing in 48 hours if dry then may shower, no soaking Wound Care Equipment: Dressings Checks after Discharge Checks after discharge: Check blood sugar, ac/hs Contacting the DRJuanpablo after DC Call your doctor for: Concerns you may have Follow-Up Follow up with: Dr. Jansen's nurse in 2 weeks [phone] BARI JANSEN MD Jul 10, 2019 13:52
[2019-07-10] MEDS ORDERED: HYDR-2765 PO (13:53)
--- NOTE | 2019-07-10 14:44 | OP ---
DATE OF SURGERY: 07/10/2019 PREOPERATIVE DIAGNOSES: 1. Herniated lumbar disc, L5-S1 with right lumbar radiculopathy. 2. Lateral recess stenosis and disc herniation at L2-L3, right. POSTOPERATIVE DIAGNOSES: 1. Herniated lumbar disc, L5-S1 with right lumbar radiculopathy. 2. Lateral recess stenosis and disc herniation at L2-L3, right. OPERATION PERFORMED: 1. Hemilaminotomy and microdiscectomy, L5-S1, right. 2. Hemilaminotomy with decompression of dura and nerve root, L2-L3, right. The operation was done with EMG monitoring, SSEP monitoring, fluoroscopy, microscopic dissection. SURGEON: Darren Jansen MD CORPORATE GENERAL MANAGER: ANANDA Gaona, assisted with the surgery. She assisted with the exposure of the 2-level decompressive surgery as well as the closure. OPERATIVE INDICATIONS: The patient is a very pleasant 69-year-old woman who developed severe intractable back and right buttock pain, which failed conservative measures. On imaging studies, she had above-mentioned findings and I recommended lumbar microsurgery. Because of the distances between the 2, I explained to her that I would make 2 separate incisions to perform two operations to decompress this region. She understood the surgery and the risks, the technique, and expected postoperative course and wished to go ahead. DESCRIPTION OF PROCEDURE: Following general endotracheal anesthesia, the patient was positioned prone on the Les frame. Her lumbar region was prepped and draped in standard fashion. QING hose and AV impulse boots were applied for DVT prophylaxis. The microscope was draped. Fluoroscopy was draped and brought into the field. Monitoring was established. Ancef 2 grams was given less than 1 hour prior to initiation of surgery. Using fluoroscopic guidance, an incision was made over the L2-L3 interspace. I dissected down through skin and subcutaneous tissue. I placed a self-retaining retractor. I brought in the microscope. Using the high speed air drill, burred down a generous hemilaminotomy, peeled away very thickened ligamentum flavum, exposed the dura and the exiting L3 root, gently retracted medially. There was considerable scarring at the level of the disc tethering down the dura densely against the underlying disc bulging, which did not appear overly severe after I totally decompressed the bone and thickened ligament. I therefore performed a partial foraminotomy, explored very carefully, and assured myself that I had an excellent decompression. I irrigated copiously with antibiotic solution and then moved down to L5-S1. At this level, I made a midline incision, dissected down through skin and subcutaneous tissue, reflected the paraspinal muscles, placed a self-retaining retractor, and brought in the high speed air drill. The anatomy was somewhat unusual with very steep angled lamina with a narrow canal and I drilled this material away and opened this with the 2.5 Kerrison as well as the 2 mm micro Kerrison after thinning the bone with a high-speed air drill. I peeled away thickened ligamentum flavum, exposing the dura and the exiting S1 root. The L5 root was inferiorly placed primarily because of the pedicle of L5 on the right was inferior, which caused the L5 root to nearly abut the superior aspect of the pedicle of S1. The primary problem, however, was a disc herniation, which was lifting and compressing the S1 root and I gently created a plane between the disc and the S1 root and began to tease back and remove disc fragments from subligamentous position, which had migrated inferiorly. As I worked, the region became very well decompressed. I entered into the disc space. The disc was virtually obliterated. I irrigated copiously with antibiotic solution. I explored carefully and at this point, the S1 root was freely mobile and the L5 root as well. It was no longer compressed. I removed the retractor, explored carefully. I used bone wax for any bone bleeding during the operation as well as bipolar cautery where necessary. I removed the retractor, obtained hemostasis in the muscle, irrigated copiously. I then closed the separate wounds in layers with absorbable suture and the skin was closed with a subcuticular stitch. The operation went very well. I was quite pleased with the surgery. DARREN JANSEN MD DR: CHRIS/ariel JOB#: [id number] / [id number] JOSHUA
[2019-07-10] MEDS ORDERED: HYDROcodone/APAP 7.5/325MG 1 TAB TABLET PO ONE (14:45)
[2019-07-10 16:00] VITALS: BP 167/77
--- NOTE | 2019-07-12 17:06 | PATHOLOGY ---
[facility] Accession Number: [id number] . 01 Material submitted: . vertebral column - LUMBAR DISC AND DECOMPRESSION . 01 Clinical history: . Lumbar herniated disc and radiculopathy . 02 Diagnosis: Segments of fibrocartilaginous, fibroadipose, and skeletal muscle tissue and bone, lumbar disc and decompression: - Degenerative changes of fibrocartilaginous tissue. (JPM:diagnostics tech; 07/12/2019) MBR 07/12/2019 1549 Local . 02 Comment: There is no evidence of an acute inflammatory process or malignancy. (JPM:diagnostics tech; 07/12/2019) . 02 Electronically signed: . Femi Nathan MD, Pathologist NPI- [id number] . 01 Gross description: . Received in formalin labeled "Kayce Bullock, lumbar disc and decompression," are several pieces of glistening, fibrous tissue measuring 4.7 x 3.1 x 1.9 cm in aggregate dimensions, containing small fragments of possible bone. The tissue is submitted representatively in cassette A1, following decalcification. (TSD; 07/10/2019) TOB/TOB 07/10/2019 1857 Local . 02 Pathologist provided ICD-10: M51.36 . 02 CPT . 873096, [id number] Specimen Comment: A courtesy copy of this report has been sent to Specimen Comment: [phone], . Specimen Comment: Report sent to / DR ELIZALDE Performed at: 01 [facility] [address], [place], [place] [id number] MD Richar Ma MD Phone: [phone] Performed at: 02 [facility] [address], [place] [id number] MD Femi Nathan MD Phone: [phone]
== END 2019-07-10 16:33 | disposition home or self-care (01) ==
LOC: SURG 08:23
PROVIDERS: ATTEND Neurological Surgery
DX: M51.16 Intervertebral disc disorders with radiculopathy, lumbar region (principal); M48.061 Spinal stenosis, lumbar region without neurogenic claudication; E11.9 Type 2 diabetes mellitus without complications; Z79.899 Other long term (current) drug therapy; Z96.642 Presence of left artificial hip joint; Z98.890 Other specified postprocedural states; Z95.810 Presence of automatic (implantable) cardiac defibrillator; Z87.891 Personal history of nicotine dependence; Z79.82 Long term (current) use of aspirin; Z79.84 Long term (current) use of oral hypoglycemic drugs
CPT/HCPCS: 63030; 63047; 82962; 88304; 88311; 97161; A7015; J0696; J1100; J1885; J2001; J2405; J2704; J2710; J3010; J3490; J7030; 76000

== ENCOUNTER → 2020-05-23 | Outpatient (CLI) | payer MEDICARE, OTHER ==
[~2020-05-23] MED LIST changes: -BACITRACIN 50,000 UNIT in IV NORMAL SALINE 1000ML BAG 1,000 ML IRR ONE; -BUPIVACAINE-EPI 0.5%-1:200000 MPF 30 ML VIAL. INJ ONE; -DICL100G18 TP; +DICL100G54 TP; -GELATIN SPONGE SIZE 12-7MM SPONGE. ONE; +HYDR-2765 PO; +HYDR25TA PO; -HYDROmorphone 2 MG/ML VIAL IV PRN; +IOHEXOL 180 MG/ML 10 ML VIAL. ONE; -IV RINGERS,LACTATED 1000ML 1,000 ML IV SCH; -KETOROLAC 60 MG/2 ML VIAL. ONE; -LIDOCAINE 1% PF 2 ML VIAL. ID PRN; -MAGN400T3 PO; +MAGN400T5 PO; -MORPHINE SULFATE 2 MG/ML VIAL. IV PRN; -ONDANSETRON PF 4 MG/2 ML VIAL. IV PRN; +PREG-9 PO; -PREG50CA PO; +PREG50CA91 PO; -PREG75CA PO; -PROCHLORPERAZINE 10 MG/2 ML VIAL. IV PRN; -THROMBIN TOPICAL 20,000 UNIT SPRAY.SYRN KIT TP ONE; -fentaNYL PF VIAL 100 MCG/2 ML VIAL IV PRN; +methylPREDNISolone ACETATE 40 MG/ML VIAL. ONE; +methylPREDNISolone ACETATE 80 MG/ML VIAL. ONE
--- NOTE | 2020-05-23 13:17 | PDOC ---
Progress Note - Pain Clinic Date of Service: DOS: DATE: 05/23/20 TIME: 13:13 Diagnosis: Dx: Lumbar radiculopathy with lumbar postlaminectomy syndrome and lumbar degenerative disc disease Cervical radiculopathy with cervical degenerative disc disease cervical postlaminectomy syndrome Bilateral shoulder joint pain with acromioclavicular joint osteoarthritis History or Present Illness: HPI: 1-year-old female returns follow-up status post previous lumbar epidural steroid injection as well as bilateral acromioclavicular joint injections. Last seen May 2019. Patient reports she did very well she had a lumbar surgery June 2019 did very well afterwards however she reports that about 1 month ago she fell at home while getting out of her bed and has had back pain since that time. Patient reports the pain is across the low back some in the left lower extremity greater than right into the posterior gluteus lateral thigh anterior thigh but without radiation further. Patient reports is worse with walking standing changing positions better with sitting or laying down but is awakened from sleep occasionally but not every night. 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 Patient reports no new motor or sensory deficits no bowel or bladder incontinence or other complaints Physical Exam: VS: Pressure is 136/82 pulse 90 respirations 18 temperature 90.5 F weight is 138 pounds PE: PHYSICAL EXAMINATION: GENERAL: The patient is awake, alert, oriented, appropriate, very pleasant demeanor HEENT: Shows normocephalic, atraumatic. Extraocular movements are intact and symmetrical. Oral cavity: Mucous membranes moist and pink. Dentition is intact. NECK: Shows anterior throat supple without palpable lymphadenopathy noted. Swallow reflex symmetrical. CHEST: Shows normal on inspection. Breath sounds are clear bilaterally, no rales rhonchi or wheezes auscultated. HEART: Shows S1, S2 clear. No murmurs auscultated. ABDOMEN: Soft, nontender, nondistended. No palpable organomegaly is noted. No rebound or guarding demonstrated. BACK: Shows spine grossly in the midline. Normal-appearing cervical lordotic curvature. There is slightly increased thoracic kyphosis, some minor flattening of the lumbar lordotic curvature. Lumbar paraspinous muscles show symmetrical on inspection, on palpation shows some moderate tenderness diffusely throughout the upper, middle and lower distribution of the paraspinous muscles bilaterally and also into the lower thoracic paraspinous musculature, firm, but without specific trigger points, without radiation of pain. The patient has good rotational motion of the lumbar spine, both laterally as well as extension and flexion without significant difficulty. No tenderness over the spinous processes, sacrum or sacroiliac regions. EXTREMITIES: Lower extremities show deep tendon reflexes 1+ in the patellar and tendo calcaneus tendons. Motor exam is 4 on a scale of 5 with right dorsiflexion, extension, quadriceps and hamstring flexion and 4/5 on the left. Peripheral pulses are 1 posterior tibial. No peripheral edema is noted bilaterally. Lower extremities are warm and dry to touch, equal in color and appearance. Straight leg raise noted to be negative on the right, left side is negative. Gaenslen's and Alonso's maneuvers are negative as well. The patient is able to stand, stand on her toes without significant difficulty walks with a slight favoring gait favoring the left lower extremity but not using any assistive device such as canes or walkers to ambulate.. SKIN: Shows warm and dry, good turgor. No edema. No sores, rashes or bruising throughout. Procedure: Procedure: Options were discussed with the patient. Patient's old chart was use her curren t medication regimen. And updated. We will proceed with a lumbar epidural steroid injection today as she is done very well with these in the past. Risks were again discussed including but not limited to bleeding infection possibility of epidural hematoma and subsequent neurological compromise dural puncture headache spinal cord and or nerve damage side effects of steroid medication and poor results regarding pain control. Patient understands wished to proceed patient return to clinic in approximately 2 weeks for follow-up was counseled as to return appointment activity level and side effects to be aware of. Medication Injected: Med Injected: Procedure is lumbar epidural steroid injection under local anesthetic using sterile prep and drape at the L5-S1 level using C-arm fluoroscopic guidance in both AP and lateral views medications injected is 120 mg Depo-Medrol + 10 mL preservative-free normal saline and 2 mL Isovue for contrast- condition at discharge is stable patient tolerated procedure well had no complications. Condition at Discharge: Condition at Discharge: Condition at discharge stable patient tolerated seizure well had no complications. FLORES FLOOD MD May 23, 2020 13:17
== END | disposition home or self-care (01) ==
LOC: PNCL 11:09
PROVIDERS: ATTEND Anesthesiology
DX: M51.16 Intervertebral disc disorders with radiculopathy, lumbar region (principal); M96.1 Postlaminectomy syndrome, not elsewhere classified; M50.30 Other cervical disc degeneration, unspecified cervical region; M19.012 Primary osteoarthritis, left shoulder; M19.011 Primary osteoarthritis, right shoulder; Z98.890 Other specified postprocedural states; Z91.040 Latex allergy status; Z91.041 Radiographic dye allergy status
CPT/HCPCS: 62323; J1030; J1040; Q9965

== ENCOUNTER → 2020-06-07 | Outpatient (CLI) | payer MEDICARE, OTHER ==
--- NOTE | 2020-06-07 11:15 | PDOC ---
Progress Note - Pain Clinic Date of Service: DOS: DATE: 06/07/20 TIME: 11:12 Diagnosis: Dx: Lumbar radiculopathy with lumbar postlaminectomy syndrome and lumbar degenerative disc disease Cervical radiculopathy with cervical degenerative disc disease cervical postlaminectomy syndrome Bilateral shoulder joint pain with osteoarthritis Myofascial pain History or Present Illness: HPI: 70-year-old female returns follow-up status post lumbar epidural steroid injection x1. Patient reports about 90% improvement after the first injection but only for about a week or so patient ports pain is been returning now low back and the right side of the hip and into the lower extremity posterior gluteus posterior thigh patient ports is worse with walking standing change positions better with sitting or laying down describes it as 7 on scale 10 is worse with the past week 5 on average 3 at its least and is a 5 today patient reports no new motor or sensory deficits no new bowel or bladder incontinence difficulty falling asleep when she gets sleep does not awaken her from sleep. Physical Exam: VS: Blood pressure 157/90 pulse 98 respirations are 20 temperature 90.4 F weight is 139 pounds PE: PHYSICAL EXAMINATION: GENERAL: The patient is awake, alert, oriented, appropriate, very pleasant demeanor HEENT: Shows normocephalic, atraumatic. Extraocular movements are intact and symmetrical. Oral cavity: Mucous membranes moist and pink. NECK: Shows anterior throat supple without palpable lymphadenopathy noted. Swallow reflex symmetrical. CHEST: Shows normal on inspection. Breath sounds are clear bilaterally, no rales rhonchi or wheezes auscultated. HEART: Shows S1, S2 clear. No murmurs auscultated. ABDOMEN: Soft, nontender, nondistended. No palpable organomegaly is noted. No rebound or guarding demonstrated. BACK: Shows spine grossly in the midline. Normal-appearing cervical lordotic curvature. There is slightly increased thoracic kyphosis, some minor flattening of the lumbar lordotic curvature. Lumbar paraspinous muscles show symmetrical on inspection, on palpation shows some moderate tenderness diffusely throughout the upper, middle and lower distribution of the paraspinous muscles bilaterally without specific trigger points, without radiation of pain. The patient has good rotational motion of the lumbar spine, both laterally as well as extension and flexion without significant difficulty. No tenderness over the spinous processes, sacrum or sacroiliac regions. EXTREMITIES: Lower extremities show deep tendon reflexes 1+ in the patellar and tendo calcaneus tendons. Motor exam is 4 on a scale of 5 with right dorsifl exion, extension, quadriceps and hamstring flexion and 4/5 on the left. Peripheral pulses are 1+ posterior tibial. No peripheral edema is noted bilaterally. Lower extremities are warm and dry to touch, equal in color and appearance. SKIN: Shows warm and dry, good turgor. No edema. No sores, rashes or bruising throughout. Procedure: Procedure: Options were discussed with the patient. Patient's old chart reviews her current medication regimen updated current review of systems updated today as well. We will proceed with a second lumbar epidural straight injection today with fluoroscopic guidance risks again discussed including but not limited to bleeding infection possibility of epidural hematoma subsequent neurological compromise dural puncture headache spinal cord and or nerve damage side effects of steroid medication and poor results chronic pain control. Patient understands wished to proceed patient return to clinic in approximately 2 weeks for follow-up was counseled as to return appointment activity level and side effects to be aware of. Medication Injected: Med Injected: Procedure is lumbar epidural steroid injection under local anesthetic using sterile prep and drape at the L5-S1 level using C-arm fluoroscopic guidance in both AP and lateral views medications injected is 120 mg Depo-Medrol + 10 mL preservative-free normal saline and 2 mL contrast- condition at discharge is stable patient tolerated procedure well had no complications. Condition at Discharge: Condition at Discharge: Condition at discharge is stable patient tolerated the procedure well had no complications. FLORES FLOOD MD Jun 07, 2020 11:15
== END | disposition home or self-care (01) ==
LOC: PNCL 10:26
PROVIDERS: ATTEND Anesthesiology
DX: M51.16 Intervertebral disc disorders with radiculopathy, lumbar region (principal); M50.10 Cervical disc disorder with radiculopathy, unspecified cervical region; M96.1 Postlaminectomy syndrome, not elsewhere classified; M19.011 Primary osteoarthritis, right shoulder; M19.012 Primary osteoarthritis, left shoulder; Z88.8 Allergy status to other drugs, medicaments and biological substances; Z79.899 Other long term (current) drug therapy
CPT/HCPCS: 62323; J1030; J1040; Q9965

== ENCOUNTER → 2020-09-17 | Outpatient (CLI) | payer MEDICARE, OTHER ==
--- NOTE | 2020-09-17 12:30 | PDOC ---
Progress Note - Pain Clinic Date of Service: DOS: DATE: 09/17/20 TIME: 12:26 Diagnosis: Dx: Lumbar radiculopathy with lumbar postlaminectomy syndrome and lumbar degenerative disc disease Cervical radiculopathy with cervical degenerative disease and cervical postlaminectomy syndrome Bilateral shoulder joint pain with osteoarthritis Myofascial pain History or Present Illness: HPI: 70-year-old female returns follow-up status post lumbar epidural steroid action x2. Last seen May 30, 2020 patient very well with about a 75% improvement in her low back and right lower extremity pain patient reports her pain is now in the back and the left lower extremity more than the right in the posterior gluteus posterior thigh and calf worse with walking standing changing positions better with sitting or laying down patient reports is an 8 on scale 10 is worse over the past week 6 on average for its least and is a 6 today patient reports tight burning cramping becoming more constant and radiating across the low back and into the left lower extremity as described. Patient reports it does not awaken her from sleep at night she sleeps well and it does not disturb her with sitting only with standing walking bending or changing positions. Patient reports no new motor or sensory deficits no new bowel or bladder incontinence or other complaints. Physical Exam: VS: Blood pressure 126/77 pulse 105 respirations 16 temperature 98.4 F weight is 133 pounds PE: PHYSICAL EXAMINATION: GENERAL: The patient is awake, alert, oriented, appropriate, very pleasant demeanor HEENT: Shows normocephalic, atraumatic. Extraocular movements are intact and symmetrical. Oral cavity: Mucous membranes moist and pink. Dentition is intact. NECK: Shows anterior throat supple without palpable lymphadenopathy noted. Swallow reflex symmetrical. CHEST: Shows normal on inspection. Breath sounds are clear bilaterally, no rales rhonchi or wheezes. HEART: Shows S1, S2 clear. No murmurs auscultated. ABDOMEN: Soft, nontender, nondistended, obese. No palpable organomegaly is noted. No rebound or guarding demonstrated. BACK: Shows spine grossly in the midline. Normal-appearing cervical lordotic curvature. Cervical paraspinous posterior shows symmetrical with inspection on palpation some mild tenderness diffusely in the middle and lower distribution paraspinous muscles but without asymmetry atrophy hypertrophy patient shows full rotation motion cervical spine both laterally as well as extension flexion without significant increase in pain. There is slightly increased thoracic kyphosis, some minor flattening of the lumbar lordotic curvature. Lumbar p araspinous muscles show symmetrical on inspection, on palpation shows some moderate tenderness diffusely throughout the upper, middle and lower distribution of the paraspinous muscles, but without specific trigger points, without radiation of pain. The patient has good rotational motion of the lumbar spine, both laterally as well as extension and flexion without significant difficulty. No tenderness over the spinous processes, sacrum or sacroiliac regions. EXTREMITIES: Lower extremities show deep tendon reflexes 1+ in the patellar and tendo calcaneus tendons. Motor exam is 4 on a scale of 5 with right dorsiflexion, extension, quadriceps and hamstring flexion and 4/5 on the left. Peripheral pulses are 1+ posterior tibial. No peripheral edema is noted lalit aterally. Lower extremities are warm and dry to touch, equal in color and appearance. SKIN: Shows warm and dry, good turgor. No edema. No sores, rashes or bruising throughout. Procedure: Procedure: Options were discussed with the patient. Patient will chart reviews her current medication regimen updated current review of systems updated today as well. We will proceed with a third in the series lumbar epidural steroid injection today with fluoroscopic guidance. Risks were discussed including but not limited to: Bleeding, infection, possibility of epidural hematoma and subsequent neurological compromise, dural puncture, headaches, spinal cord and/or nerve damage, side effects of steroid medication, and poor results regarding pain control. Patient understands wished to proceed. Patient will return to clinic in approximate 2 weeks for follow-up was counseled as to return appointment, activity level, and side effects to be aware of. Medication Injected: Med Injected: Procedure is lumbar epidural steroid injection under local anesthetic using sterile prep and drape at the L5-S1 level using C-arm fluoroscopic guidance in both AP and lateral views medications injected is 120 mg Depo-Medrol + 10 mL preservative-free normal saline and 2 mL contrast- condition at discharge is stable patient tolerated procedure well had no complications. Condition at Discharge: Condition at Discharge: Condition at discharge stable, patient tolerated procedure well and had no complications. FLORES FLOOD MD Sep 17, 2020 12:30
== END | disposition home or self-care (01) ==
LOC: PNCL 11:12
PROVIDERS: ATTEND Anesthesiology
DX: M51.16 Intervertebral disc disorders with radiculopathy, lumbar region (principal); M50.10 Cervical disc disorder with radiculopathy, unspecified cervical region; M96.1 Postlaminectomy syndrome, not elsewhere classified; M19.012 Primary osteoarthritis, left shoulder; M19.011 Primary osteoarthritis, right shoulder; M79.18 Myalgia, other site; I10 Essential (primary) hypertension; E78.00 Pure hypercholesterolemia, unspecified; K21.9 Gastro-esophageal reflux disease without esophagitis; E11.9 Type 2 diabetes mellitus without complications; E03.9 Hypothyroidism, unspecified; M19.90 Unspecified osteoarthritis, unspecified site; F41.9 Anxiety disorder, unspecified; F32.9 Major depressive disorder, single episode, unspecified; Z87.891 Personal history of nicotine dependence; Z79.4 Long term (current) use of insulin; Z79.899 Other long term (current) drug therapy; Z98.890 Other specified postprocedural states; Z91.040 Latex allergy status; Z91.041 Radiographic dye allergy status; Z88.8 Allergy status to other drugs, medicaments and biological substances
CPT/HCPCS: 62323; J1030; J1040; Q9965

== ENCOUNTER → 2020-11-11 | Outpatient (CLI) | payer MEDICARE, OTHER ==
[~2020-11-11] MED LIST changes: +BUPIVACAINE MPF 0.25% 10 ML VIAL. ONE; -IOHEXOL 180 MG/ML 10 ML VIAL. ONE; +METH-562 PO; -METH750T2 PO; -methylPREDNISolone ACETATE 80 MG/ML VIAL. ONE
--- NOTE | 2020-11-11 13:42 | PDOC ---
Progress Note - Pain Clinic Date of Service: DOS: DATE: 11/11/20 TIME: 13:36 Diagnosis: Dx: Myofascial pain Cervical radiculopathy with cervical degenerative disease and cervical postlaminectomy syndrome Lumbar radiculopathy with lumbar degenerative disease and lumbar postlaminectomy syndrome Bilateral shoulder joint pain with osteoarthritis History or Present Illness: HPI: 70-year-old female returns follow-up status post lumbar epidural steroid injections as well as acromioclavicular joint injections and trigger point inje ctions in the past returns after lumbar epidural steroid traction September 17, 2020 did very well after the last injection with about a 70% improvement patient reports pain returning low back left lower extremity posterior gluteus posterior lateral thigh and posterior calf patient reports an 8 on scale 10 is worse over the past week 7 on average to its least and is a 6 today patient reports that she also has significant pain the base the neck on the left side into the shoulder as well. Patient reports worse with walking standing changing positions in the leg as well as reaching with her left arm and she is been losing some strength in it as well she has been using a soft c-collar to sleep at night which she says helps to some extent but the pain in the base the neck and shoulder still significant patient reports is burning and cramping aching in the base of neck radiating to the left shoulder as well. Patient also reports pain in the upper mid back on the left side as well. Patient reports no new motor or sensory deficits no new bowel or bladder incontinence or other complaints. Physical Exam: VS: Pressure is 145/79 pulse 107 respirations 16 temperature 98.2 F weight is 135 pounds PE: PHYSICAL EXAMINATION: GENERAL: The patient is awake, alert, oriented, appropriate, very pleasant demeanor HEENT: Shows normocephalic, atraumatic. Extraocular movements are intact and symmetrical. Oral cavity: Mucous membranes moist and pink. NECK: Shows anterior throat supple without palpable lymphadenopathy noted. Swallow reflex symmetrical. CHEST: Shows normal on inspection. Breath sounds are clear bilaterally, no rales or rhonchi. HEART: Shows S1, S2 clear. No murmurs auscultated. ABDOMEN: Soft, nontender, nondistended, obese. No palpable organomegaly is noted. No rebound or guarding demonstrated. BACK: Shows spine grossly in the midline. Normal-appearing cervical lordotic curvature. Cervical paraspinous but shows symmetrical with inspection on palpation some very firm ropelike musculature in the middle and lower cervical paraspinous posture on the left only consistent with areas of trigger point musculature but without specific radiation patient does show good rotation motion cervical spine both laterally as well as extension flexion without increase in pain. Patient's left superior medial trapezius also very firm ropelike musculature in this region as well as into the superior aspect of the thoracic paraspinous musculature on the left only right side is supple without specific trigger points or radiation. There is slightly increased thoracic kyphosis, some flattening of the lumbar lordotic curvature. Lumbar paraspinous muscles show symmetrical on inspection, on palpation shows some moderate tenderness diffusely throughout the upper, middle and lower distribution of the paraspinous muscles bilaterally and also into the lower thoracic paraspinous musculature, firm and tender, but without specific trigger points, without radiation of pain. The patient has good rotational motion of the lumbar spine, both laterally as well as extension and flexion without significant difficulty. EXTREMITIES: Lower extremities show deep tendon reflexes 1+ in the patellar and tendo calcaneus tendons. Motor exam is 4 on a scale of 5 with right dorsiflexion, extension, quadriceps and hamstring flexion and 4/5 on the left. Peripheral pulses are 1+ posterior tibial. No peripheral edema is noted bilaterally. Lower extremities are warm and dry to touch, equal in color and appearance. SKIN: Shows warm and dry, good turgor. No edema. No sores, rashes or bruising throughout. Procedure: Procedure: Options were discussed with the patient. Patient chart reviews her current medication regimen updated current review of systems updated today as well. We will proceed with trigger point injections of the left cervical paraspinous po sture, left trapezius musculature, left thoracic paraspinous musculature. Risks were discussed including but not limited to bleeding infection possibility of intravascular injection sequelae spread local anesthetic numbness side effects steroid medication and poor results regarding pain control. Patient understands wished to proceed patient return to clinic in approximately 2 weeks for follow- up with counselors return appointment activity level and side effects to be aware of. Medication Injected: Med Injected: Under sterile prep and drape patient sitting position patient's neck left shoulder and upper back were sterilely prepped and draped in usual fashion. Trigger points were identified in the cervical paraspinous posture as well as a trapezius musculature on the left and the left thoracic paraspinous musculature and injected using 25-gauge needle with 1 cc of 0.25% bupivacaine at each level and a total of 40 mg Depo-Medrol. Total amount of 8 cc 0.25% Bupivacaine was used after negative aspiration each injection site. Patient tolerated procedure well had no complications. Condition at Discharge: Condition at Discharge: Condition at discharge is stable patient tolerated the procedure well and had no complications. FLORES FLOOD MD Nov 11, 2020 13:42
--- NOTE | 2020-11-11 13:43 | PDOC4 ---
PROCEDURE Procedure Patient was consented for trigger point injections. Risk were discussed inc luding but not limited to bleeding infection possibility of intravascular injection sequelae spread local anesthetic numbness side effects steroid medication and portal scarring pain control. Patient understands wished to proceed. Under sterile prep and drape patient's cervical distribution as well as the left trapezius and left upper back was prepped and draped in usual fashion. Using a 25-gauge 1-1/2 inch needle trigger points were identified and injected with 1 cc of 0.25% bupivacaine at each injection site after negative aspiration a total of 8 cc 0.25% bupivacaine and total of 40 mg Depo-Medrol over 8 cc. Patient tolerated procedure well and had no complications. FLORES FLOOD MD Nov 11, 2020 13:43
== END | disposition home or self-care (01) ==
LOC: PNCL 13:03
PROVIDERS: ATTEND Anesthesiology
DX: M50.10 Cervical disc disorder with radiculopathy, unspecified cervical region (principal); M51.16 Intervertebral disc disorders with radiculopathy, lumbar region; M96.1 Postlaminectomy syndrome, not elsewhere classified; M79.18 Myalgia, other site; M19.012 Primary osteoarthritis, left shoulder; M19.011 Primary osteoarthritis, right shoulder; E78.00 Pure hypercholesterolemia, unspecified; I10 Essential (primary) hypertension; K21.9 Gastro-esophageal reflux disease without esophagitis; E11.9 Type 2 diabetes mellitus without complications; E03.9 Hypothyroidism, unspecified; F41.9 Anxiety disorder, unspecified; F32.9 Major depressive disorder, single episode, unspecified; Z87.891 Personal history of nicotine dependence; Z79.4 Long term (current) use of insulin; Z79.899 Other long term (current) drug therapy; Z98.890 Other specified postprocedural states; Z72.89 Other problems related to lifestyle; Z91.040 Latex allergy status; Z88.8 Allergy status to other drugs, medicaments and biological substances
CPT/HCPCS: 20553; J1030; J3490

== ENCOUNTER → 2021-02-10 | Outpatient (CLI) | payer MEDICARE, OTHER ==
[~2021-02-10] MED LIST changes: +IOHEXOL 180 MG/ML 10 ML VIAL. ONE; -methylPREDNISolone ACETATE 40 MG/ML VIAL. ONE; +methylPREDNISolone ACETATE 80 MG/ML VIAL. ONE
--- NOTE | 2021-02-10 14:45 | PDOC4 ---
PROCEDURE Procedure Patient was consented for left acromioclavicular joint injection. Risks were discussed including but not limited to bleeding infection possibility of intravascular injection sequelae spread local anesthetic numbness side effects steroid medication exposure fluoroscopy and portals regarding pain control. Patient understands wished to proceed. Patient supine position under sterile prep drape using C-arm fluoroscopic guidance patient's left shoulder was visualized and using 1% lidocaine over the area of the acromioclavicular joint was then topically anesthetized. Using a 22-gauge Quincke needle with stylette the joint was entered under direct visualization with fluoroscopy and stylet removed at this time 1 cc of contrast was injected with good spread within the left acromioclavicular joint and without washout. At this time solution containing 2 cc of 0.25% bupivacaine and 80 mg Depo-Medrol was then injected into the left acromioclavicular joint. Needle was removed sterile bandage was applied. Patient tolerated the procedure well had no complications. FLORES FLOOD MD February 10, 2021 14:45
--- NOTE | 2021-02-10 14:45 | PDOC ---
Progress Note - Pain Clinic Date of Service: DOS: DATE: 02/10/21 TIME: 14:37 Diagnosis: Dx: Cervical radiculopathy cervical degenerative disease cervical postlaminectomy syndrome Lumbar radiculopathy with lumbar degenerative disease lumbar postop Bilateral shoulder joint pain with osteoarthritis Myofascial pain History or Present Illness: HPI: 70-year-old female returns for follow-up status post previous lumbar epidural injection as well as myofascial trigger point injections and shoulder acromioclavicular joint injections. Patient reports to be doing very well until the last few weeks pain began to return in the left shoulder mostly in the superior and anterior aspect of the shoulder joint itself with carrying items most noticeably patient reports is worse with range of motion lifting items reaching forward or trying to reach over her head is becoming more difficult and painful on the left side only patient reports especially carrying things at her side and weightbearing and lifting is becoming more painful patient reports limited to the area of the anterior superior shoulder also some radiation of the anterior deltoid patient rates is 8 on scale 10 is worse with past week 6 on average 4 to sleep and is a 5 today. Patient reports cramping and aching burning and stinging at times with radiation into the anterior deltoid as well as into the bicep on occasion. Patient reports general is not awakening from sleep at night feels much better when she is resting it she also has a supportive wrap that she uses when she is working in her yard which helps as well. Physical Exam: VS: Blood pressure is 130/70 pulse 72 respirations 18 temperature 98.6 F weight is 130 pounds height is 4 feet 11 inches PE: PHYSICAL EXAMINATION: GENERAL: The patient is awake, alert, oriented, appropriate, very pleasant demeanor HEENT: Shows normocephalic, atraumatic. Extraocular movements are intact and symmetrical. Oral cavity: Mucous membranes moist and pink. NECK: Shows anterior throat supple without palpable lymphadenopathy noted. Swallow reflex symmetrical. CHEST: Shows normal on inspection. Breath sounds are clear bilaterally, distant but no rales rhonchi wheezes auscultated. HEART: Shows S1, S2 clear. No murmurs auscultated. ABDOMEN: Soft, nontender, nondistended, obese. No palpable organomegaly is noted. No rebound or guarding demonstrated. BACK: Shows spine grossly in the midline. Normal-appearing cervical lordotic curvature, cervical paraspinous pressure show symmetrical inspection with palpation some moderate tenderness diffusely in the inferior aspect cervical paraspinous muscles. Trapezius bilaterally normally diffusely without radiation without trigger points on inspection today. There is slightly increased thoracic kyphosis, some minor flattening of the lumbar lordotic curvature. Well-healed surgical scars noted in the midline. Lumbar paraspinous muscles show symmetrical on inspection, on palpation shows some moderate tenderness diffusely throug for hout the upper, middle and lower distribution of the paraspinous muscles without specific trigger points, without radiation of pain. The patient has good rotational motion of the lumbar spine, both laterally as well as extension and flexion without significant difficulty. EXTREMITIES: Lower extremities show deep tendon reflexes 1+ in the patellar and tendo calcaneus tendons. Motor exam is 4 on a scale of 5 with right dorsiflexion, extension, quadriceps and hamstring flexion and 4/5 on the left. Peripheral pulses are 1+ posterior tibial. No peripheral edema is noted bilaterally. Lower extremities are warm and dry to touch, equal in color and appearance. Upper extremity show deep tendon reflexes 2+ in the bicep triceps tendons motor exam strong with design drafter chief strength rated at 4-5 on the left 5-5 on the right biceps triceps are likewise 4-5 left 5 out of 5 right. Shoulder shrug is strong and intact without loss of strength on resistance. Patient's left shoulder shows significant tenderness with palpation of the acromioclavicular joint with superiorly and posteriorly but without radiation. Right side is only very mildly tender. SKIN: Shows warm and dry, good turgor. No edema. No sores, rashes or bruising throughout. Procedure: Procedure: Options were discussed with the patient. Patient's chart was reviewed his current medication regimen updated current review of systems updated today as well. We will proceed with a left acromioclavicular joint injection today with fluoroscopic guidance. Risk were discussed including but not limited to bleeding infection possibility of intravascular injection sequelae spread local anesthetic numbness side effects steroid medications post fluoroscopy and portals rating pain control. Patient understands wished to proceed. Patient return to clinic in approximately 2 weeks for follow-up was counseled as to return appointment activity level and side effects to be aware of. Medication Injected: Med Injected: Patient supine position under sterile prep drape using C-arm fluoroscopic guidance patient's left shoulder was visualized and using 1% lidocaine over the area of the acromioclavicular joint was then topically anesthetized. Using a 22-gauge Quincke needle with stylette the joint was entered under direct visualization with fluoroscopy and stylet removed at this time 1 cc of contrast was injected with good spread within the left acromioclavicular joint and without washout. At this time solution containing 2 cc of 0.25% bupivacaine and 80 mg Depo-Medrol was then injected into the left acromioclavicular joint. Needle was removed sterile bandage was applied. Patient tolerated the procedure well had no complications. Condition at Discharge: Condition at Discharge: Condition at discharge stable, patient already procedure well and had no complications. FLORES FLOOD MD February 10, 2021 14:45
== END | disposition home or self-care (01) ==
LOC: PNCL 13:53
PROVIDERS: ATTEND Anesthesiology
DX: M19.012 Primary osteoarthritis, left shoulder (principal); M19.011 Primary osteoarthritis, right shoulder; M25.512 Pain in left shoulder; M25.511 Pain in right shoulder; M79.18 Myalgia, other site; M50.10 Cervical disc disorder with radiculopathy, unspecified cervical region; M51.16 Intervertebral disc disorders with radiculopathy, lumbar region; M96.1 Postlaminectomy syndrome, not elsewhere classified; I10 Essential (primary) hypertension; E78.00 Pure hypercholesterolemia, unspecified; K21.9 Gastro-esophageal reflux disease without esophagitis; E11.9 Type 2 diabetes mellitus without complications; E03.9 Hypothyroidism, unspecified; F41.9 Anxiety disorder, unspecified; F32.9 Major depressive disorder, single episode, unspecified; Z87.891 Personal history of nicotine dependence; Z79.84 Long term (current) use of oral hypoglycemic drugs; Z79.899 Other long term (current) drug therapy; Z98.890 Other specified postprocedural states; Z82.49 Family history of ischemic heart disease and other diseases of the circulatory system; Z91.041 Radiographic dye allergy status; Z88.8 Allergy status to other drugs, medicaments and biological substances; Z91.040 Latex allergy status
CPT/HCPCS: 20610; 77002; J1040; J3490; Q9965; 20605

== ENCOUNTER → 2021-05-08 | Outpatient (CLI) | payer MEDICARE, OTHER ==
[~2021-05-08] MED LIST changes: -BUPIVACAINE MPF 0.25% 10 ML VIAL. ONE; +methylPREDNISolone ACETATE 40 MG/ML VIAL. ONE
--- NOTE | 2021-05-08 13:09 | PDOC ---
Progress Note - Pain Clinic Date of Service: DOS: DATE: 05/08/21 TIME: 13:05 Diagnosis: Dx: Cervical radiculopathy with cervical degenerative disease and cervical postlaminectomy syndrome Lumbar to colopathy with lumbar degenerative disease lumbar postlaminectomy syndrome Bilateral shoulder joint pain with osteoarthritis Myofascial pain History or Present Illness: HPI: 70-year-old female returns for follow-up status post left acromioclavicular joint injection February 10, 2021. Patient reports she did very well with at least 75 % improvement and her main complaint today is neck and bilateral upper extremity pain. Patient has had significant pain in the base the neck and shoulders rating the upper extremities bilaterally slightly worse on the right than the left and present bilaterally into the hand and arm on the right side with numbness and tingling patient reports is worse with repetitive motions lifting reaching overhead with the right hand has been disturbing sleep about once every 6 hours reports the pain is aching and sharp tight shooting burning with some numbness and tingling in the right arm and hand as well as the thumb and first and second fingers patient reports is an 8 on scale 10 is worse over the past week 5 on average 3 its least it is a 5 today. Patient reports is worse with rotating her neck or looking upwards or walking more than 20 to 30 minutes without her head moving. Patient reports no loss of motor function no new bowel or bladder incontinence or other complaints. Physical Exam: VS: Blood pressure is 135/83 pulse 99 respirations 18 temperature 98.2 F height is 4 feet 11 inches weight is 130 pounds PE: PHYSICAL EXAMINATION: GENERAL: The patient is awake, alert, oriented, appropriate, very pleasant in demeanor HEENT: Shows normocephalic, atraumatic. Extraocular movements are intact and symmetrical. Oral cavity: Mucous membranes moist and pink. NECK: Shows anterior throat supple without palpable lymphadenopathy noted. Swallow reflex symmetrical. CHEST: Shows normal on inspection. Breath sounds are clear bilaterally, no rales rhonchi or wheezes auscultated. HEART: Shows S1, S2 clear. No murmurs auscultated. ABDOMEN: Soft, nontender, nondistended, obese. No palpable organomegaly is noted. BACK: Shows spine grossly in the midline. Normal-appearing cervical lordotic curvature. Cervical paraspinous muscles show symmetrical with inspection, on palpation some moderate tenderness diffusely in the inferior aspect cervical paraspinous musculature bilaterally more on the right than left and present bilaterally without specific trigger points or radiation. Patient shows good rotation motion cervical spine both laterally as well as extension and flexion without significant increase in pain. There is slightly increased thoracic kyphosis, some minor flattening of the lumbar lordotic curvature. Well-healed surgical scar is noted in the lumbar distribution. Lumbar paraspinous muscles show symmetrical on inspection, on palpation shows some moderate tenderness dif fusely throughout the upper, middle and lower distribution of the paraspinous muscles without specific trigger points, without radiation of pain. The patient has good rotational motion of the lumbar spine, both laterally as well as extension and flexion without significant difficulty. No tenderness over the spinous processes, sacrum or sacroiliac regions. EXTREMITIES: Lower extremities show deep tendon reflexes 1+ in the patellar and tendo calcaneus tendons. Motor exam is 4 on a scale of 5 with right elvia siflexion, extension, quadriceps and hamstring flexion and 4/5 on the left. Peripheral pulses are 1+ posterior tibial. No peripheral edema is noted bilaterally. Lower extremities are warm and dry to touch, equal in color and appearance. Upper extremity show deep tendon reflexes 2+ in the bicep tricep tendons, motor exam is positive for scale 5 on the right and 5 out of 5 on the left with rotor casting machine setup operator strength, biceps and triceps flexion. Shoulder shrug is strong and intact without loss of strength on resistance bilaterally. SKIN: Shows warm and dry, good turgor. No edema. No sores, rashes or bruising throughout. Procedure: Procedure: Options were discussed with the patient. Patient's old chart was reviewed as her current medication regimen updated current review of systems updated today as well. We will proceed with a cervical epidural steroid injection today with fluoroscopic guidance. Risks were discussed including but not limited to: Bleeding, infection, possibility of epidural hematoma and subsequent neurological compromise, dural puncture, headaches, spinal cord and/or nerve damage, side effects of steroid medication, and poor results regarding pain control. Patient understands and wished to proceed. Patient will return to clinic in approximately 2 weeks for follow-up, was counseled as to return appointment activity level and side effects to be aware of. Medication Injected: Med Injected: Procedure cervical epidural steroid injection at the C6-7 level, using local anesthetic under sterile prep and drape using C-arm fluoroscopic guidance under local anesthesia medications injected ;120 mg Depo-Medrol +5 mL normal saline and 2 mL contrast; condition at discharge is stable patient tolerated procedure well. and had no complications Condition at Discharge: Condition at Discharge: Condition at discharge stable, patient tolerated the procedure well and had no complications. FLORES FLOOD MD May 08, 2021 13:09
--- NOTE | 2021-05-08 13:09 | PDOC4 ---
Procedure Note: ICD 10 Code: ICD 10 Code: M54.12 M 96.1 M50.30 Procedure Note: Patient was consented for cervical epidural steroid injection with fluoroscopic guidance. Risks were discussed including but not limited to: Bleeding, infection, possibility of epidural hematoma and subsequent neurological compromise, dural puncture, headaches, spinal cord and/or nerve damage, side effects of steroid medication, and poor results regarding pain control. Patient understands and wished to proceed. Procedure cervical epidural steroid injection at the C6-7 level, using local a nesthetic under sterile prep and drape using C-arm fluoroscopic guidance under local anesthesia medications injected ;120 mg Depo-Medrol +5 mL normal saline and 2 mL contrast; condition at discharge is stable patient tolerated procedure well. and had no complications FLORES FLOOD MD May 08, 2021 13:09
== END ==
LOC: PNCL 11:31
PROVIDERS: ATTEND Anesthesiology
DX: M50.123 Cervical disc disorder at C6-C7 level with radiculopathy (principal); M96.1 Postlaminectomy syndrome, not elsewhere classified; M19.90 Unspecified osteoarthritis, unspecified site
CPT/HCPCS: 62321; J1030; J1040; Q9965

== ENCOUNTER → 2021-06-24 | Outpatient (CLI) | payer MEDICARE, OTHER ==
[~2021-06-24] MED LIST changes: +BUPIVACAINE MPF 0.25% 10 ML VIAL. ONE; -methylPREDNISolone ACETATE 40 MG/ML VIAL. ONE
--- NOTE | 2021-06-24 14:59 | PDOC ---
Progress Note - Pain Clinic Date of Service: DOS: DATE: 06/24/21 TIME: 14:55 Diagnosis: Dx: Cervical radiculopathy with cervical degenerative disease and cervical postlaminectomy syndrome Lumbar radiculopathy with lumbar degenerative disc disease and postlaminectomy syndrome Bilateral shoulder joint pain with osteoarthritis Myofascial pain Right wrist joint pain History or Present Illness: HPI: 71-year-old female returns for follow-up status post cervical epidural steroid action x1 May 08, 2021. Patient reports about 70% better with pain in the neck and the shoulder some of her main complaint today however is left shoulder pain she responded very well to an acromioclavicular joint injection in February of this year patient reports that the pain is back to her weight was very painful with repetitive motions lifting holding items at her side and weightbearing as well as reaching forward and weightbearing or reaching overhead with her left arm patient reports awakens her from sleep occasionally when she is asleep she does fairly well patient reports the pain is a 9 on scale 10 is worse over the past week 7 at its average in 4 to sleep and is a 7 today patient scribes a sharp and burning cramping can be constant in the left shoulder as well. Patient reports no new motor or sensory deficits no bowel or bladder incontinence or other complaints. Physical Exam: VS: Blood pressure is 139/85 pulse 114 respirations 16 temperature 98.4 F weight is 130 pounds PE: PHYSICAL EXAMINATION: GENERAL: The patient is awake, alert, oriented, appropriate, very pleasant in demeanor HEENT: Shows normocephalic, atraumatic. Extraocular movements are intact and symmetrical. Oral cavity: Mucous membranes moist and pink. Dentition is intact. NECK: Shows anterior throat supple without palpable lymphadenopathy noted. Swallow reflex symmetrical. CHEST: Shows normal on inspection. Breath sounds are clear bilaterally, no rales rhonchi or wheezes auscultated. HEART: Shows S1, S2 clear. No murmurs auscultated. ABDOMEN: Soft, nontender, nondistended, obese. No palpable organomegaly is noted. BACK: Shows spine grossly in the midline. Normal-appearing cervical lordotic curvature. Cervical paraspinous muscles show symmetrical inspection, on palpation some moderate tenderness diffusely but only diffusely in the lower distribution the cervical paraspinous muscular as well as the superior medial trapezius bilaterally. Patient shows full rotation motion cervical spine both laterally as well as extension flexion without significant difficulty. There is slightly increased thoracic kyphosis, some minor flattening of the lumbar lordotic curvature. Lumbar paraspinous muscles show symmetrical on inspection, on palpation shows some moderate tenderness diffusely throughout the upper, middle and lower distribution of the paraspinous muscles, but without specific trigger points, without radiation of pain. The patient has good rotational motion of the lumbar spine, both laterally as well as extension and flexion without significant difficulty. No tenderness over the spinous processes, sacrum or sacroiliac regions. EXTREMITIES: Lower extremities show deep tendon reflexes 1 in the patellar and tendo calcaneus tendons. Motor exam is 4 on a scale of 5 with right dorsiflexi on, extension, quadriceps and hamstring flexion and 4/5 on the left. Peripheral pulses are 1+ posterior tibial. No peripheral edema is noted bilaterally. Lower extremities are warm and dry to touch, equal in color and appearance. Upper extremity show deep tendon reflexes 2+ in the bicep triceps tendons, motor exam and strong with 4-5 on the right and 5 out of 5 left developer designer strength bicep and tricep flexion. Peripheral pulses are 2+ radial. Patient's left shoulder shows significant tenderness with palpation of the acromioclavicular joint both anteriorly and posteriorly as well as superiorly without radiation. Right side is nontender. Patient shows good rotation of motion of the shoulders with moderate tenderness with abduction of the left past 45 degrees but not the right. SKIN: Shows warm and dry, good turgor. No edema. No sores, rashes or bruising throughout. Procedure: Procedure: Options were discussed with the patient. Patient chart was reviewed as her current medication regimen updated current review of systems updated today as well. We will proceed with a left acromioclavicular joint injection today with fluoroscopic guidance. Risks were discussed including but not limited to bleeding infection possibility of intravascular injection sequelae spread local anesthetic numbness side effects steroid medication portals regarding pain control. Patient understands wished to proceed. Patient return to clinic in approximately 1 month for follow-up, was counseled as return appointment activity level and side effects to be aware of. Medication Injected: Med Injected: Patient supine position under sterile prep and drape using C-arm fluoroscopic guidance patient's right shoulder was visualized and using 25-gauge needle 1% lidocaine was used to topically anesthetized area over the acromioclavicular joint on the right. Using a 22-gauge Quincke needle with stylette the joint was entered under direct fluoroscopic visualization without difficulty stylet was removed at this time 1.5 cc of contrast was injected with good intra-articular spread in the shoulder joint without uptake. At this time 2 cc of 0.25% bupivacaine and 80 mg Depo-Medrol was then injected into the joint. Needle was removed and sterile bandage was applied. Patient tolerated the procedure well and had no complications. Condition at Discharge: Condition at Discharge: Condition at discharge is stable, patient already the procedure well and had no complications. FLORES FLOOD MD Jun 24, 2021 14:59
--- NOTE | 2021-06-24 15:00 | PDOC4 ---
Procedure Note: ICD 10 Code: ICD 10 Code: M2 5.512 M19.012 Procedure Note: Patient was consented for left shoulder acromioclavicular joint injection with fluoroscopic guidance. Risk were discussed including but not limited to bleeding infection possibility of intravascular injection sequelae spread local anesthetic numbness side effects steroid medication portals regarding pain control. Patient understands wished to proceed. Patient supine position under sterile prep and drape using C-arm fluoroscopic guidance patient's left shoulder was visualized and using 25-gauge needle 1% lidocaine was used to topically anesthetized area over the acromioclavicular joint on the left. Using a 22-gauge Quincke needle with stylette the joint was entered under direct fluoroscopic visualization without difficulty stylet was removed at this time 1.5 cc of contrast was injected with good intra-articular spread in the shoulder joint without uptake. At this time 2 cc of 0.25% bupivacaine and 80 mg Depo-Medrol was then injected into the joint. Needle was removed and sterile bandage was applied. Patient tolerated the procedure well and had no complications. FLORES FLOOD MD Jun 24, 2021 15:00
--- NOTE | 2021-07-01 09:26 | FMN ---
PT PROBLEMS Addendum for visit of June 24, 2021 Clarification for procedure: Acromioclavicular joint of the shoulder was injected on the left shoulder, not the right as stated in the progress notes. Please see operative record from June 24, 2021 as well. FLORES FLOOD MD Jul 01, 2021 09:26
== END | disposition home or self-care (01) ==
LOC: PNCL 13:55
PROVIDERS: ATTEND Anesthesiology
DX: M19.012 Primary osteoarthritis, left shoulder (principal); M19.011 Primary osteoarthritis, right shoulder; M79.18 Myalgia, other site; M50.10 Cervical disc disorder with radiculopathy, unspecified cervical region; M51.16 Intervertebral disc disorders with radiculopathy, lumbar region; M96.1 Postlaminectomy syndrome, not elsewhere classified; M25.531 Pain in right wrist; I10 Essential (primary) hypertension; E78.00 Pure hypercholesterolemia, unspecified; E11.9 Type 2 diabetes mellitus without complications; E03.9 Hypothyroidism, unspecified; K21.9 Gastro-esophageal reflux disease without esophagitis; F41.9 Anxiety disorder, unspecified; F32.9 Major depressive disorder, single episode, unspecified; Z87.891 Personal history of nicotine dependence; Z79.4 Long term (current) use of insulin; Z79.899 Other long term (current) drug therapy; Z98.890 Other specified postprocedural states; Z91.041 Radiographic dye allergy status; Z91.040 Latex allergy status; Z88.8 Allergy status to other drugs, medicaments and biological substances
CPT/HCPCS: 20610; 77002; J1040; J3490; Q9965; 20605

== ENCOUNTER → 2021-08-20 | Outpatient (CLI) | payer MEDICARE, OTHER ==
[~2021-08-20] MED LIST changes: -BUPIVACAINE MPF 0.25% 10 ML VIAL. ONE; +MAGN400T48 PO; -MAGN400T5 PO; +methylPREDNISolone ACETATE 40 MG/ML VIAL. ONE
--- NOTE | 2021-08-20 13:25 | PDOC ---
Progress Note - Pain Clinic Date of Service: DOS: DATE: 08/20/21 TIME: 13:21 Diagnosis: Dx: Cervical radiculopathy with cervical degenerative disease and cervical postlaminectomy syndrome Lumbar radiculopathy with lumbar degenerative disease and lumbar postlaminectomy syndrome Bilateral shoulder joint pain with osteoarthritis Myofascial pain Right wrist joint pain with osteoarthritis History or Present Illness: HPI: 71-year-old female returns for follow-up last seen June 24, 2021 underwent left shoulder acromioclavicular joint injection with very good results about 75% improvement patient returns today reporting that her main pain is based in the neck and shoulders bilaterally radiating more in the right upper extremity and to the posterior deltoid posterior trapezius and into the triceps and forearm as well as into the biceps and forearm on the right side into the right hand patient reports is getting much more noticeable is becoming very problematic with trying to sleep taking care of her household activities as well as her pets at home is becoming more struggling with the right hand patient reports her pain is an 8 on scale 10 is worse over the past week 5 on average for its least and is a 4 today patient ports aching and tight burning constant with repetitive motions lifting reaching and sleeping patient reports it occasionally wakes her from sleep sometimes once or twice a night but not more than that. Patient reports no motor deficits but significant fatigue in the right upper extremity as well. Physical Exam: VS: Blood pressure is 141/80 pulse 109 respirations 18 temperature 98.1 F weight is 130 pounds PE: PHYSICAL EXAMINATION: GENERAL: The patient is awake, alert, oriented, appropriate, very pleasant in de meanor HEENT: Shows normocephalic, atraumatic. Extraocular movements are intact and symmetrical. Oral cavity: Mucous membranes are moist and pink. NECK: Shows anterior throat supple without palpable lymphadenopathy noted. Swallow reflex symmetrical. CHEST: Shows normal on inspection. Breath sounds are clear bilaterally, no rales rhonchi wheezes auscultated. HEART: Shows S1, S2 clear. No murmurs auscultated. ABDOMEN: Soft, nontender, nondistended. No palpable organomegaly is noted. BACK: Shows spine grossly in the midline. Normal-appearing cervical lordotic curvature. Cervical paraspinous muscles show symmetrical inspection, palpation some moderate tenderness diffusely in inferior x-ray of the cervical paraspinous musculature more on the right than the left and present bilaterally without significant radiation. Patient shows good rotation of motion of the cervical spine both laterally as well as extension flexion without significant limitation. There is increased thoracic kyphosis, some flattening of the lumbar lordotic curvature. Lumbar paraspinous muscles show symmetrical on inspection, on palpation shows some moderate tenderness diffusely throughout the upper, middle and lower distribution of the paraspinous muscles, but without specific trigger points, without radiation of pain. The patient has good rotational motion of the lumbar spine, both laterally as well as extension and flexion without significant difficulty. EXTREMITIES: Lower extremities show deep tendon reflexes 1 to in the patellar a nd tendo calcaneus tendons. Motor exam is 4 on a scale of 5 with right dorsiflexion, extension, quadriceps and hamstring flexion and 4/5 on the left. Peripheral pulses are 1 posterior tibial. No peripheral edema is noted bilaterally. Upper extremity show deep tendon reflexes 2+ in the bicep tricep tendons, motor exam is 4 scale 5 with right drug abuse social worker strength bicep tricep flexion 5 out of 5 on the left. SKIN: Shows warm and dry, good turgor. No edema. No sores, rashes or bruising throughout. Procedure: Procedure: Options were discussed with the patient. Patient chart was reviewed as her current medication regimen updated current review of systems updated today as well. We will proceed with a cervical epidural steroid injection today with fluoroscopic guidance. Risks were discussed including but not limited to: Bleeding, infection, possibility of epidural hematoma and subsequent neurological compromise, dural puncture, headaches, spinal cord and/or nerve damage, side effects of steroid medication, and poor results regarding pain control. Patient understands and wished to proceed. Patient return to clinic in approximately 2 weeks for follow-up, was counseled as return appointment, activity level, and side effects to be aware of. Medication Injected: Med Injected: Procedure cervical epidural steroid injection at the C6-7 level, using local anesthetic under sterile prep and drape using C-arm fluoroscopic guidance under local anesthesia medications injected ;120 mg Depo-Medrol +5 mL normal saline and 2 mL contrast; condition at discharge is stable patient tolerated procedure well. and had no complications Condition at Discharge: Condition at Discharge: Condition at discharge is stable, patient tolerated procedure well and had no complications. FLORES FLOOD MD Aug 20, 2021 13:25
--- NOTE | 2021-08-20 13:26 | PDOC4 ---
Procedure Note: ICD 10 Code: ICD 10 Code: M54.12 M50.30 722.81 Procedure Note: Patient was consented for cervical epidural steroid injection with fluoroscopic guidance. Risks were discussed including but not limited to: Bleeding, infection, possibility of epidural hematoma and subsequent neurological compromise, dural puncture, headaches, spinal cord and/or nerve damage, side effects of steroid medication, and poor results regarding pain control. Patient understands and wished to proceed. Procedure cervical epidural steroid injection at the C6-7 level, using local a nesthetic under sterile prep and drape using C-arm fluoroscopic guidance under local anesthesia medications injected ;120 mg Depo-Medrol +5 mL normal saline and 2 mL contrast; condition at discharge is stable patient tolerated procedure well. and had no complications FLORES FLOOD MD Aug 20, 2021 13:26
== END | disposition home or self-care (01) ==
LOC: PNCL 11:59
PROVIDERS: ATTEND Anesthesiology
DX: M50.10 Cervical disc disorder with radiculopathy, unspecified cervical region (principal); M96.1 Postlaminectomy syndrome, not elsewhere classified; M51.16 Intervertebral disc disorders with radiculopathy, lumbar region; M19.012 Primary osteoarthritis, left shoulder; M19.011 Primary osteoarthritis, right shoulder; M79.18 Myalgia, other site; M19.031 Primary osteoarthritis, right wrist; I10 Essential (primary) hypertension; E78.00 Pure hypercholesterolemia, unspecified; K21.9 Gastro-esophageal reflux disease without esophagitis; E11.9 Type 2 diabetes mellitus without complications; E03.9 Hypothyroidism, unspecified; F41.9 Anxiety disorder, unspecified; F32.9 Major depressive disorder, single episode, unspecified; Z87.891 Personal history of nicotine dependence; Z79.84 Long term (current) use of oral hypoglycemic drugs; Z79.899 Other long term (current) drug therapy; Z98.890 Other specified postprocedural states; Z82.49 Family history of ischemic heart disease and other diseases of the circulatory system; Z91.041 Radiographic dye allergy status; Z91.040 Latex allergy status; Z88.8 Allergy status to other drugs, medicaments and biological substances
CPT/HCPCS: 62321; J1030; J1040; Q9965

== ENCOUNTER → 2021-09-10 | Outpatient (CLI) | payer MEDICARE, OTHER ==
--- NOTE | 2021-09-10 15:58 | PDOC ---
Progress Note - Pain Clinic Date of Service: DOS: DATE: 09/10/21 TIME: 15:54 Diagnosis: Dx: Lumbar radiculopathy with lumbar degenerative disease lumbar postlaminectomy syndrome Cervical radiculopathy with cervical degenerative disease and cervical postlaminectomy syndrome Myofascial pain Bilateral shoulder joint pain with osteoarthritis Right wrist joint pain with osteoarthritis History or Present Illness: HPI: 71-year-old female returns for follow-up status post cervical epidural steroid injection with good results patient reports about 75% improvement after the last injection still doing well her main complaint today however is low back and bila teral lower extremity pain worse on the left than the right patient reports pain is increasing across the low back into the left posterior gluteus posterior thigh and calf as well as some on the right but mostly on the left side patient reports is worse with walking standing changing positions rated as a 6 on scale 10 is worse over the past week 5 on average for its least is a 5 today. Patient reports is worse with standing walking changing positions getting up from a seated position better with sitting or laying down does not generally awaken her from sleep at night most nights which is not sleeping well regardless. She reports no loss of motor function but significant fatigability especially left lower extremity with walking and standing. Patient reports he feels "weak" in the left lower extremity as well. Patient reports no bowel or bladder incontinence. Physical Exam: VS: Blood pressure is 139/88 pulse 119 respirations 18 temperature 98.2 F, height is 4 feet 11 inches weight is 132 pounds PE: PHYSICAL EXAMINATION: GENERAL: The patient is awake, alert, oriented, appropriate, [facility] patient [place] by her . HEENT: Shows normocephalic, atraumatic. Extraocular movements are intact and symmetrical. NECK: Shows anterior throat supple without palpable lymphadenopathy noted. Swallow reflex symmetrical. CHEST: Shows normal on inspection. Breath sounds are clear bilaterally, no rales rhonchi or wheezes auscultated. HEART: Shows S1, S2 clear. No murmurs auscultated. ABDOMEN: Soft, nontender, nondistended. No palpable organomegaly is noted. BACK: Shows spine grossly in the midline. Normal-appearing cervical lordotic curvature. There is slightly increased thoracic kyphosis, some minor flattening of the lumbar lordotic curvature. Lumbar paraspinous muscles show symmetrical on inspection, on palpation shows some moderate tenderness diffusely throughout the upper, middle and lower distribution of the paraspinous muscles without spe cific trigger points, without radiation of pain. The patient has good rotational motion of the lumbar spine, both laterally as well as extension and flexion without significant difficulty. No tenderness over the spinous processes, sacrum or sacroiliac regions. EXTREMITIES: Lower extremities show deep tendon reflexes 1+ in the patellar and tendo calcaneus tendons. Motor exam is 4 on a scale of 5 with right dorsiflexion, extension, quadriceps and hamstring flexion and 4/5 on the left. Peripheral pulses are 1+ posterior tibial. No peripheral edema is noted bilaterally. Lower extremities are warm and dry to touch, equal in color and appearance. SKIN: Shows warm and dry, good turgor. No edema. No sores, rashes or bruising throughout. Procedure: Procedure: Options were discussed with the patient. Patient old chart was reviewed. her current medication regimen updated and current review of systems updated today as well. We will proceed with a lumbar epidural steroid injection today with fluoroscopic guidance. Risks were discussed including but not limited to: Bleeding, infection, possibility of epidural hematoma and subsequent neurological compromise, dural puncture, headaches, spinal cord and/or nerve damage, side effects of steroid medication, and poor results regarding pain control. Patient understands and wished to proceed. Patient will return to the clinic in approximately 4 weeks for follow-up, was counseled as return appointment, activity level, and side effect to be aware of. Medication Injected: Med Injected: Procedure is lumbar epidural steroid injection under local anesthetic using sterile prep and drape at the L5-S1 level using C-arm fluoroscopic guidance in both AP and lateral views medications injected is 120 mg Depo-Medrol +10mL preservative-free normal saline and 2 mL contrast- condition at discharge is stable patient tolerated procedure well had no complications. Condition at Discharge: Condition at Discharge: Condition at discharge stable, patient tolerated the procedure well and had no complications. FLORES FLOOD MD Sep 10, 2021 15:58
--- NOTE | 2021-09-10 15:59 | PDOC4 ---
Procedure Note: ICD 10 Code: ICD 10 Code: M54.17 M51.87 M 96.1 Procedure Note: Patient was consented for lumbar epidural steroid injection with fluoroscopic guidance. Risks were discussed including but not limited to: Bleeding, infection, possibility of epidural hematoma and subsequent neurological compromise, dural puncture, headaches, spinal cord and/or nerve damage, side effects of steroid medication, and poor results regarding pain control. Patient understands and wished to proceed. Procedure is lumbar epidural steroid injection under local anesthetic using ster ile prep and drape at the L5-S1 level using C-arm fluoroscopic guidance in both AP and lateral views medications injected is 120 mg Depo-Medrol +10mL preservative-free normal saline and 2 mL contrast- condition at discharge is stable patient tolerated procedure well had no complications. FLORES FLOOD MD Sep 10, 2021 15:59
== END | disposition home or self-care (01) ==
LOC: PNCL 15:21
PROVIDERS: ATTEND Anesthesiology
DX: M51.16 Intervertebral disc disorders with radiculopathy, lumbar region (principal); M96.1 Postlaminectomy syndrome, not elsewhere classified; M50.10 Cervical disc disorder with radiculopathy, unspecified cervical region; M79.18 Myalgia, other site; M19.011 Primary osteoarthritis, right shoulder; M19.012 Primary osteoarthritis, left shoulder; M19.031 Primary osteoarthritis, right wrist; I10 Essential (primary) hypertension; E78.00 Pure hypercholesterolemia, unspecified; E03.9 Hypothyroidism, unspecified; E11.9 Type 2 diabetes mellitus without complications; K21.9 Gastro-esophageal reflux disease without esophagitis; F41.9 Anxiety disorder, unspecified; F32.9 Major depressive disorder, single episode, unspecified; Z87.891 Personal history of nicotine dependence; Z79.84 Long term (current) use of oral hypoglycemic drugs; Z79.899 Other long term (current) drug therapy; Z98.890 Other specified postprocedural states; Z91.040 Latex allergy status; Z91.041 Radiographic dye allergy status; Z88.8 Allergy status to other drugs, medicaments and biological substances
CPT/HCPCS: 62323; J1030; J1040; Q9965

== ENCOUNTER → 2021-12-01 | Outpatient (CLI) | payer MEDICARE, OTHER ==
[~2021-12-01] MED LIST changes: -IOHEXOL 180 MG/ML 10 ML VIAL. ONE; -methylPREDNISolone ACETATE 40 MG/ML VIAL. ONE; -methylPREDNISolone ACETATE 80 MG/ML VIAL. ONE
--- NOTE | 2021-12-01 14:42 | KCIC ---
Examination: MRI of the left shoulder without contrast HISTORY: History of chronic left shoulder pain, decreased range of motion COMPARISON: None available TECHNIQUE: Multiplanar, multisequence MR imaging left shoulder without contrast FINDINGS: Moderate increased T2 signal with thickened appearance of the long the biceps tendon likely moderate tendinosis. The attachment of the subscapularis tendon, supraspinatus, infraspinatus tendon grossly a ppears intact. Moderate to severe increased signal identified in the subscapularis, supraspinatus, in fraspinatus tendons likely tendinosis. There is severe joint space loss identified in the glenohumeral joint with large osteophyte formation likely degenerative changes. Moderate prominent appearing synovium in the glenohumeral joint likely synovitis Complete cartilage loss glenohumeral joint. Diffuse attenuation of the labrum throughout. The acromion is type II. Severe degenerative changes acromioclavicular joint. The muscle bulk grossly appears unremarkable. There is obscuration of fat in the rotator interval. IMPRESSION: 1. Severe degenerative changes glenohumeral joint, acromioclavicular joint. 2. Moderate to severe tendinosis of the rotator cuff. 3. Moderate prominent appearing synovium in the glenohumeral joint likely synovitis. 4. Obscuration of fat in the rotator interval. Correlate for adhesive capsulitis. Electronically signed by: Remi Hameed MD (12/01/2021 2:40 PM) [id number]
== END ==
LOC: KCIC MRI 13:09
PROVIDERS: ATTEND Orthopaedic Surgery
DX: M19.012 Primary osteoarthritis, left shoulder (principal); M75.82 Other shoulder lesions, left shoulder; M25.812 Other specified joint disorders, left shoulder
CPT/HCPCS: 73221

== ENCOUNTER → 2022-01-01 | Outpatient (CLI) | payer MEDICARE, OTHER ==
--- NOTE | 2022-01-01 14:10 | EKG ---
[facility] [address] [place] [address] Test Date: 2022-01-01 Test Time: 14:11:42 Pat Name: AMI TREJO Department: Room: Gender: F [employer]: : 1950 Requested By: MARILU CASTAÑEDA Order Number: [id number] Reading MD: Dusty Villalobos MD Measurements Intervals [place] Rate: 120 P: 64 ID: 128 QRS: 36 QRSD: 110 T: 116 QT: 328 QTc: 469 Interpretive Statements SINUS TACHYCARDIA LBBB SEPTAL INFARCT PATTERN ABNORMAL EKG Electronically Signed On 01-01-2022 14:59:14 CDT by Dusty Villalobos MD
[2022-01-01 14:15] LABS: BASO # 0.1 x10^3/uL (0.0-0.2); BASO % 1 % (0-3); EOS # 0.1 x10^3/uL (0.0-0.7); EOS % 1 % (0-3); HEMATOCRIT 35.3 % (36.0-47.0); LYMPH # 1.7 x10^3/uL (1.0-4.8); LYMPH % 21 % (24-48); MEAN CORPUSCULAR HEMOGLOBIN 32 pg (25-35); MEAN CORPUSCULAR HGB CONC 34 g/dL (31-37); MEAN CORPUSCULAR VOLUME 95 fL (79-100); MONO # 0.6 x10^3/uL (0.0-1.1); MONO % 7 % (0-9); NEUT # 5.8 x10^3/uL (1.8-7.7); NEUT % 70 % (31-73); PLATELET COUNT 375 x10^3/uL (140-400); RED BLOOD COUNT 3.73 x10^6/uL (3.50-5.40); RED CELL DISTRIBUTION WIDTH 12.9 % (11.5-14.5); WHITE BLOOD COUNT 8.2 x10^3/uL (4.0-11.0)
[2022-01-01 14:25] LABS: PROTHROMBIN TIME PATIENT 12.1 SEC (11.7-14.0)
[2022-01-01 14:37] LABS: ALBUMIN 3.7 g/dL (3.4-5.0); CALCIUM 9.2 mg/dL (8.5-10.1); CREATININE 1.3 mg/dL (0.6-1.0); GFR 40.2; POTASSIUM 4.4 mmol/L (3.5-5.1)
--- NOTE | 2022-01-01 14:47 | RAD ---
AP and Lateral Views of the Chest 01/01/2022 2:24 PM Indication: Reason: PRE-OP SHOULDER SURGERY / Spl. Instructions: / History: Comparison: Chest radiograph September 21, 2018 Findings: There is no focal consolidation or infiltrate identified. The cardiomediastinal silhouette is within normal limits. There is no evidence of pneumothorax or pleural effusion. Degenerative es of the thoracic spine noted. No acute osseous abnormalities are identified. Cervical fusion noted. Impression: No evidence of acute cardiopulmonary process. Electronically signed by: Luis Perez MD (01/01/2022 2:44 PM) [id number]
[2022-01-02 00:09] LABS: HEMOGLOBIN A1C 8.9 % (4.8-5.6)
== END ==
LOC: SURGPAT 13:20
PROVIDERS: ATTEND Orthopaedic Surgery Sports Medicine
DX: Z01.818 Encounter for other preprocedural examination (principal); M19.012 Primary osteoarthritis, left shoulder; I44.7 Left bundle-branch block, unspecified; I10 Essential (primary) hypertension; R94.31 Abnormal electrocardiogram [ECG] [EKG]; M47.814 Spondylosis without myelopathy or radiculopathy, thoracic region; Z98.1 Arthrodesis status
CPT/HCPCS: 36415; 71046; 80048; 82040; 82306; 83036; 85025; 85610; 85651; 85730; 87641; 93005

== ENCOUNTER → 2022-02-09 | Outpatient (CLI) | payer MEDICARE, OTHER ==
[~2022-02-09] MED LIST changes: +BUPIVACAINE MPF 0.25% 10 ML VIAL. ONE; +DEXAMETHASONE PRES.FREE 10 MG/ML VIAL. ONE; +IOHEXOL 180 MG/ML 10 ML VIAL. ONE; +LOSA-73 PO
--- NOTE | 2022-02-09 11:34 | PDOC ---
Progress Note - Pain Clinic Date of Service: DOS: DATE: 02/09/22 TIME: 11:30 Diagnosis: Dx: Cervical radiculopathy with cervical degenerative disease and cervical postlaminectomy syndrome Lumbar radiculopathy with lumbar degenerative disease and lumbar postlaminectomy syndrome Bilateral shoulder joint pain with osteoarthritis Myofascial pain Right wrist joint pain History or Present Illness: HPI: 71-year-old female returns for follow-up status post lumbar epidural steroid injection last seen September 10, 2021. Patient reports she did very well about 75% improvement after the injection but her main complaint today is right shoulder joint pain patient is recently had some x-rays showing severe osteoarthritis right greater left glenohumeral joint with associated bony remodeling. Patient reports is worse with repetitive motions lifting with her right arm reaching forward reaching back she cannot reach overhead with her right arm secondary to the pain left side is painful as well with the right side is much more severe. Patient reports is an 8 on scale 10 is worst 8 on average 5 its least is an 8 today. Patient reports pain is shooting cramping can be r adiating constant as well in the right shoulder with repetitive motions or weightbearing difficulty sleeping wakes her from sleep at least once every 6 hours especially when she lays on her right side. Patient reports no loss of motor function but significant fatigability of the right upper extremity secondary to the pain. Physical Exam: VS: Blood pressure is 136/70 pulse 109 respirations 18 temperature is 98.3 F height is 4 feet 11 inches weight is 129 pounds. PE: PHYSICAL EXAMINATION: GENERAL: The patient is awake, alert, oriented, appropriate, very pleasant in demeanor HEENT: Shows normocephalic, atraumatic. Extraocular movements are intact and symmetrical. Patient wearing eyeglasses. Oral cavity: Mucous membranes moist and pink. Dentition is intact. NECK: Shows anterior throat supple without palpable lymphadenopathy noted. Swallow reflex symmetrical. CHEST: Shows normal on inspection. Breath sounds are clear bilaterally. HEART: Shows S1, S2 clear. No murmurs auscultated. ABDOMEN: Soft, nontender, nondistended. No palpable organomegaly is noted. BACK: Shows spine grossly in the midline. Normal-appearing cervical lordotic curvature. There is moderately increased thoracic kyphosis, some flattening of the lumbar lordotic curvature with well-healed surgical scarring noted. Lumbar paraspinous muscles show symmetrical on inspection, on palpation shows some moderate tenderness diffusely throughout the upper, middle and lower distribution of the paraspinous muscles without specific trigger points, without radiation of pain. The patient has good rotational motion of the lumbar spine, both laterally as well as extension and flexion without significant difficulty. EXTREMITIES: Lower extremities show deep tendon reflexes 1 in the patellar and tendo calcaneus tendons. Motor exam is 4 on a scale of 5 with right dorsiflexion, extension, quadriceps and hamstring flexion and 4/5 on the left. Peripheral pulses are 1+ posterior tibial. No peripheral edema is noted bilaterally. Lower extremities are warm and dry to touch, equal in color and appearance. Upper extremities show deep tendon reflexes 2+ in the bicep triceps tendons, motor exam is 4 scale 5 on the right 5 and 5 on the left social services director strength bicep tricep flexion. Patient's right shoulder shows significant tenderness with palpation of the anterior aspect of the glenohumeral joint as well as superiorly left side is moderately tender with palpation patient shows reduced range of motion past 45 degrees abduction with the right shoulder with significant pain and loss of strength on resistance on the right side. SKIN: Shows warm and dry, good turgor. No edema. No sores, rashes or bruising throughout. Procedure: Procedure: Options were discussed with the patient. Patient's old chart was reviewed as her current medication regimen updated current review of systems updated today as well. We will proceed with a right intra-articular glenohumeral shoulder joint injection today with fluoroscopic guidance. Risks are discussed including but not limited to bleeding infection possibility of intravascular ejection sequelae spread local anesthetic numbness side effects steroid medications post fluoroscopy and portals regarding pain control. Patient understands wished to proceed. Medication Injected: Med Injected: Patient supine position under sterile prep and drape using C-arm fluoroscopic guidance patient's right shoulder was visualized and using 25-gauge needle 1% lidocaine was used to topically anesthetized area over the glenohumeral joint on the right. Using a 22-gauge Quincke needle with stylette the joint was entered under direct fluoroscopic visualization without difficulty stylet was removed at this time 2 cc of contrast was injected with good intra-articular spread in the shoulder joint without uptake. At this time 3 cc of 0.25% bupivacaine and 20 mg dexamethasone was then injected into the joint. Needle was removed and sterile bandage was applied. Patient tolerated the procedure well and had no complications. Condition at Discharge: Condition at Discharge: Condition at discharge is stable, patient Dede the procedure well and had no complications. FLORES FLOOD MD February 09, 2022 11:34
--- NOTE | 2022-02-09 11:35 | PDOC4 ---
Procedure Note: ICD 10 Code: ICD 10 Code: M25.511 M19.011 Procedure Note: Patient was consented for right intra-articular shoulder joint injection with fluoroscopic guidance. Risks were discussed including but not limited to bleeding infection possibility of intravascular injection sequelae spread local anesthetic numbness side effects steroid medication, exposure fluoroscopy and poor results regarding pain control. Patient understands wished to proceed. Patient supine position under sterile prep and drape using C-arm fluoroscopic guidance patient's right shoulder was visualized and using 25-gauge needle 1% lidocaine was used to topically anesthetized area over the glenohumeral joint on the right. Using a 22-gauge Quincke needle with stylette the joint was entered under direct fluoroscopic visualization without difficulty stylet was removed at this time 2 cc of contrast was injected with good intra-articular spread in the shoulder joint without uptake. At this time 3 cc of 0.25% bupivacaine and 20 mg dexamethasone was then injected into the joint. Needle was removed and sterile bandage was applied. Patient tolerated the procedure well and had no complications. FLORES FLOOD MD February 09, 2022 11:35
== END | disposition home or self-care (01) ==
LOC: PNCL 10:40
PROVIDERS: ATTEND Anesthesiology
DX: M19.011 Primary osteoarthritis, right shoulder (principal); M50.10 Cervical disc disorder with radiculopathy, unspecified cervical region; M96.1 Postlaminectomy syndrome, not elsewhere classified; M51.16 Intervertebral disc disorders with radiculopathy, lumbar region; M19.012 Primary osteoarthritis, left shoulder; M79.18 Myalgia, other site; I10 Essential (primary) hypertension; E78.00 Pure hypercholesterolemia, unspecified; E11.9 Type 2 diabetes mellitus without complications; E03.9 Hypothyroidism, unspecified; K21.9 Gastro-esophageal reflux disease without esophagitis; F41.9 Anxiety disorder, unspecified; F32.9 Major depressive disorder, single episode, unspecified; Z87.891 Personal history of nicotine dependence; Z79.84 Long term (current) use of oral hypoglycemic drugs; Z79.899 Other long term (current) drug therapy; Z98.890 Other specified postprocedural states; Z91.041 Radiographic dye allergy status; Z88.8 Allergy status to other drugs, medicaments and biological substances
CPT/HCPCS: 20610; 77002; J1100; J3490; Q9965

== ENCOUNTER → 2022-02-23 | Outpatient (CLI) | payer MEDICARE, OTHER ==
[~2022-02-23] MED LIST changes: -BUPIVACAINE MPF 0.25% 10 ML VIAL. ONE
--- NOTE | 2022-02-23 12:11 | PDOC ---
Progress Note - Pain Clinic Date of Service: DOS: DATE: 02/23/22 TIME: 12:07 Diagnosis: Dx: Cervical radiculopathy with cervical degenerative disease and cervical postlaminectomy syndrome Lumbar to colopathy with lumbar degenerative disease and lumbar postlaminectomy syndrome Bilateral shoulder joint pain with osteoarthritis Myofascial pain Right wrist joint pain History or Present Illness: HPI: 71-year-old female returns for follow-up status post right shoulder joint injection patient reports she did very well with this with still some significant pain in the shoulder itself but is different is radiating now from the neck more into the right side and shoulder upper back as well as the scapular region patient reports now it is radiating more into the arm also into the anterior bicep into the forearm at times as well with numbness and tingling in the arm. Patient reports her shoulder is doing better with range of motion is been increasing activities greater ease and comfort lifting items more comfortably and sleeping better on her right side patient rates her pain as a 9 on scale 10 is worse over the past week 6 on average 4 to [place] is a 4 today patient scribes aching and cramping stabbing and radiating in the right upper extremity patient reports no bowel or bladder incontinence no acute complaint today is radiating pain from the neck into the shoulder on the right side. Patient reports she is getting surgery scheduled for her left shoulder replacement but has not scheduled as of yet. Physical Exam: VS: Blood pressure is 126/58 pulse 59 respirations 18 temperature 97.9 F height is 4 foot 11 inches weight is 129 pounds. PE: PHYSICAL EXAMINATION: GENERAL: The patient is awake, alert, oriented, appropriate, very pleasant in demeanor HEENT: Shows normocephalic, atraumatic. Patient wearing eyeglasses. Extraocular movements are intact and symmetrical. NECK: Shows anterior throat supple without palpable lymphadenopathy noted. Swallow reflex symmetrical. CHEST: Shows normal on inspection. Breath sounds are clear bilaterally, no rales or rhonchi auscultated. HEART: Shows S1, S2 clear. No murmurs auscultated. ABDOMEN: Soft, nontender, nondistended. No palpable organomegaly is noted. BACK: Shows spine grossly in the midline. Normal-appearing cervical lordotic curvature. Cervical paraspinous muscles show symmetrical with inspection, on palpation some moderate tenderness diffusely bilaterally diffusely without significant radiation. Patient has good rotation motion cervical spine with some moderate tenderness with extension and forward flexion but not right or left lateral rotation. There is moderately increased thoracic kyphosis, some flattening of the lumbar lordotic curvature. Lumbar paraspinous muscles show symmetrical on inspection, on palpation shows some moderate tenderness diffusely throughout the upper, middle and lower distribution of the paraspinous muscles, without specific trigger points, without radiation of pain. The patient has good rotational motion of the lumbar spine, both laterally as well as extension and flexion without significant difficulty. EXTREMITIES: Lower extremities show deep tendon reflexes 1+ in the patellar and tendo calcaneus tendons. Motor exam is 4 on a scale of 5 with right dorsifl exion, extension, quadriceps and hamstring flexion and 4/5 on the left. Peripheral pulses are 1+ posterior tibial. No peripheral edema is noted bilaterally. Lower extremities are warm and dry. Upper extremities show deep tendon reflexes 2+ in the bicep tricep tendons motor exam is 4 on the right and 5 on the left business planning director strength bicep and tricep flexion. SKIN: Shows warm and dry, good turgor. No edema. No sores, rashes or bruising throughout. Procedure: Procedure: Options were discussed with the patient. Patient's old chart was reviewed as her current medication regimen updated current review of systems updated today as well. We will proceed with a cervical epidural steroid injection today with fluoroscopic guidance. Risks were discussed including but not limited to: Bleeding, infection, possibility of epidural hematoma and subsequent neurologi jacquie compromise, dural puncture, headaches, spinal cord and/or nerve damage, side effects of steroid medication, and poor results regarding pain control. Patient understands and wished to proceed. Patient will return to clinic in approximately 2 weeks for follow-up, was counseled as to return appointment, activity level, and side effects to be aware of. Medication Injected: Med Injected: Procedure cervical epidural steroid injection at the C6-7 level, using local anesthetic under sterile prep and drape using C-arm fluoroscopic guidance under local anesthesia medications injected ; 20 mg dexamethasone +5 mL normal saline and 2 mL contrast; condition at discharge is stable patient tolerated procedure well. and had no complications Condition at Discharge: Condition at Discharge: Condition at discharge stable, patient tolerated procedure well and had no complications. FLORES FLOOD MD February 23, 2022 12:11
--- NOTE | 2022-02-23 12:12 | PDOC4 ---
Procedure Note: ICD 10 Code: ICD 10 Code: M54.12 M50.30 722.81 Procedure Note: Patient was consented for cervical epidural steroid injection with fluoroscopic guidance. Risks were discussed including but not limited to: Bleeding, infection, possibility of epidural hematoma and subsequent neurological compromise, dural puncture, headaches, spinal cord and/or nerve damage, side effects of steroid medication, and poor results regarding pain control. Patient understands and wished to proceed. Procedure cervical epidural steroid injection at the C6-7 level, using local a nesthetic under sterile prep and drape using C-arm fluoroscopic guidance under local anesthesia medications injected ; 20 mg dexamethasone +5 mL normal saline and 2 mL contrast; condition at discharge is stable patient tolerated procedure well. and had no complications FLORES FLOOD MD February 23, 2022 12:12
== END | disposition home or self-care (01) ==
LOC: PNCL 10:40
PROVIDERS: ATTEND Anesthesiology
DX: M50.10 Cervical disc disorder with radiculopathy, unspecified cervical region (principal); M54.12 Radiculopathy, cervical region; M96.1 Postlaminectomy syndrome, not elsewhere classified; M51.16 Intervertebral disc disorders with radiculopathy, lumbar region; M19.011 Primary osteoarthritis, right shoulder; M19.012 Primary osteoarthritis, left shoulder; M79.18 Myalgia, other site; M25.531 Pain in right wrist; I10 Essential (primary) hypertension; E78.00 Pure hypercholesterolemia, unspecified; K21.9 Gastro-esophageal reflux disease without esophagitis; E11.9 Type 2 diabetes mellitus without complications; E03.9 Hypothyroidism, unspecified; F41.9 Anxiety disorder, unspecified; F32.9 Major depressive disorder, single episode, unspecified; Z79.4 Long term (current) use of insulin; Z79.899 Other long term (current) drug therapy; Z98.890 Other specified postprocedural states; Z91.041 Radiographic dye allergy status; Z91.040 Latex allergy status; Z88.8 Allergy status to other drugs, medicaments and biological substances
CPT/HCPCS: 62321; J1100; Q9965; G0463

== ENCOUNTER → 2022-03-03 | Outpatient (CLI) | payer MEDICARE, OTHER ==
[~2022-03-03] MED LIST changes: -DEXAMETHASONE PRES.FREE 10 MG/ML VIAL. ONE; -IOHEXOL 180 MG/ML 10 ML VIAL. ONE
--- NOTE | 2022-03-03 16:43 | KCIC ---
Exam Date: 03/03/2022 1:00 PM MRI RIGHT UPPER EXTREMITY JOINT WITHOUT CONTRAST Indication: Reason: RIGHT SHOULDER PAIN / Spl. Instructions: / History: Right shoulder pain and LROM . Prev surgery x 2.. TECHNIQUE: Routine multiplanar MR imaging of the shoulder was performed without contrast. FINDINGS: Diffuse rotator cuff tendinopathy is noted. No full-thickness rotator cuff tendon tear is identified . Rotator cuff musculature demonstrates normal signal and bulk. Moderate to severe degenerative changes are seen at the AC joint. There is an intact type II acromio n. Small fluid is seen in the subacromial/subdeltoid bursa consistent with mild bursitis. The intracapsular long head of the biceps tendon is not well seen consistent with a complete tear. T he labrum diffusely demonstrates abnormal signal and morphology consistent with degenerative tearing, though lack of intra-articular contrast limits evaluation. Severe degenerative changes are present at the glenohumeral joint with extensive full-thickness chond ral loss, large osteophytes, and subchondral cystic changes seen at the glenohumeral joint. Bone mar row demonstrates benign signal on all sequences without acute fracture. IMPRESSION: Diffuse rotator cuff tendinopathy without full-thickness tear. Complete tear of the intracapsular long head of the biceps tendon. Severe degenerative changes noted. Mild subacromial/subdeltoid bursitis. Electronically signed by: Obi Godfrey MD (03/03/2022 4:41 PM) [id number]
== END | disposition home or self-care (01) ==
LOC: KCIC MRI 12:32
PROVIDERS: ATTEND Anesthesiology
DX: M25.511 Pain in right shoulder (principal); M75.51 Bursitis of right shoulder; M19.011 Primary osteoarthritis, right shoulder; I10 Essential (primary) hypertension; K21.9 Gastro-esophageal reflux disease without esophagitis; E78.00 Pure hypercholesterolemia, unspecified; E11.9 Type 2 diabetes mellitus without complications; E03.9 Hypothyroidism, unspecified; F41.9 Anxiety disorder, unspecified; F32.9 Major depressive disorder, single episode, unspecified; Z87.891 Personal history of nicotine dependence; Z79.84 Long term (current) use of oral hypoglycemic drugs; Z79.899 Other long term (current) drug therapy; Z98.890 Other specified postprocedural states; Z91.041 Radiographic dye allergy status; Z91.040 Latex allergy status; Z88.8 Allergy status to other drugs, medicaments and biological substances
CPT/HCPCS: 73221